=== PATIENT | female | born 1945 | race Caucasian/White ===

== ENCOUNTER 2017-10-30 03:55 | Inpatient (IN) | payer OTHER, MEDICARE ==
[2017-10-30 05:15] LABS: ABNORMAL IP MESSAGE 1; HEMATOCRIT 43.7 % (37.0-47.0); HEMOGLOBIN 13.3 g/dl (12.0-16.0); MEAN CORPUSCULAR HEMOGLOBIN 28.2 pg (29.0-33.0); MEAN CORPUSCULAR HGB CONC 30.4 g/dl (32.0-37.0); MEAN CORPUSCULAR VOLUME 92.8 fl (82.0-101.0); MEAN PLATELET VOLUME 11.7 fl (7.4-10.4); NUCLEATED RED BLOOD CELLS% 0.1 /100WBC (0.0-0.0); PLATELET COUNT 330 10^3/UL (140-415); RED BLOOD COUNT 4.71 10^6/ul (4.20-5.40); RED CELL DISTRIBUTION WIDTH 14.2 % (11.5-14.5)
[2017-10-30 05:46] LABS: POSITIVE DIFF @See below
[2017-10-30 05:47] LABS: ADD MAN DIFF? YES
[2017-10-30 05:50] LABS: ANION GAP 17 (8-16); BLOOD UREA NITROGEN 42 mg/dl (7-20); CALCIUM 9.2 mg/dl (8.4-10.2); CARBON DIOXIDE 32 mmol/L (21-31); CHLORIDE 100 mmol/L (97-110); CREATININE 1.67 mg/dl (0.44-1.00); GLUCOSE 167 mg/dl (70-220); POTASSIUM 3.9 mmol/L (3.5-5.1); SODIUM 145 mmol/L (135-144)
[2017-10-30] MEDS: SODIUM CHLORIDE 0.9% 1L BAG IV* (06:42)
[2017-10-30] MEDS ORDERED: ROCURONIUM 50 MG INJ (07:00)
[2017-10-30] MEDS ORDERED: ETOMIDATE 20 MG INJ (07:00)
[2017-10-30] MEDS ORDERED: NORepinephrine 8MG/250 ML BAG (07:00)
[2017-10-30 07:34] LABS: URINE PH (Dip) POC 5.5 (5.0-8.5)
[2017-10-30 07:34] LABS: URINE BLOOD (Dip) POC 1+ (NEGATIVE); URINE GLUCOSE (Dip) POC Negative (NEGATIVE); URINE KETONES (Dip) POC Negative (NEGATIVE); URINE LEUKOCYTE EST (Dip) POC Trace (NEGATIVE); URINE NITRITE (Dip) POC Negative (NEGATIVE); URINE TOTAL PROTEIN POC 1+ (NEGATIVE)
[2017-10-30 08:06] LABS: LACTIC ACID 1.7 mmol/L (0.5-2.0)
[2017-10-30] MEDS: CEFEPIME 2GM/50 ML (PMX) 50 ML IVPB (08:13)
[2017-10-30 08:32] LABS: ADD UMIC YES; UR AMORPHOUS CRYSTAL FEW /HPF (NONE SEEN); UR ASCORBIC ACID NEGATIVE (NEGATIVE); UR BACTERIA MODERATE /HPF (NONE SEEN); UR BILIRUBIN (Dip) 1+ mg/dL (NEGATIVE); UR BLOOD (Dip) 1+ mg/dL (NEGATIVE); UR CLARITY TURBID (CLEAR); UR COLOR AMBER (YELLOW); UR GLUCOSE (Dip) NEGATIVE (NEGATIVE); UR KETONES (Dip) NEGATIVE (NEGATIVE); UR LEUKOCYTE ESTERASE (Dip) TRACE Leu/ul (NEGATIVE); UR MUCUS FEW /HPF (NONE SEEN); UR NITRITE (Dip) NEGATIVE (NEGATIVE); UR RBC 6 /HPF (0-5); UR SPECIFIC GRAVITY (Dip) 1.016 (1.003-1.030); UR SQUAMOUS EPITHELIAL CELL MANY /HPF (FEW); UR TOTAL PROTEIN (Dip) 1+ mg/dl (NEGATIVE); UR UROBILINOGEN (Dip) 2+ mg/dL (NEGATIVE); UR WBC 6 /HPF (0-5)
[2017-10-30] MEDS: ONDANSETRON 4 MG INJ IV ×2 (08:57→09:39)
[2017-10-30] MEDS: morphine 4 MG/ML VIAL IV ×2 (08:57→09:41)
[2017-10-30 09:12] LABS: BAND NEUTROPHILS % (M) 26 % (0-4); BASOPHIL #M 0.3 10^3/ul (0.0-0.0); BASOPHILS % (M) 1 % (0-2); GIANT THROMBO% (M) 3 % (0-0); LYMPHOCYTES #M 1.5 10^3/ul (0.8-2.9); LYMPHOCYTES % (M) 5 % (15-51); MONOCYTE #M 1.5 10^3/ul (0.3-0.9); MONOCYTES % (M) 5 % (0-11); PLATELET ESTIMATE NORMAL; POIKILOCYTOSIS 2+ (0-0); POLYCHROMASIA 1+ (0-0); SEGMENTED NEUTROPHILS (M) % 63 % (39-77); SMUDGE%M 2 % (0-0)
[2017-10-30 09:28] LABS: ALANINE AMINOTRANSFERASE 30 IU/L (13-69); ALBUMIN 3.7 g/dl (3.3-4.9); ALKALINE PHOSPHATASE 174 IU/L (42-121); ANION GAP 16 (8-16); ASPARTATE AMINO TRANSFERASE 40 IU/L (15-46); BLOOD UREA NITROGEN 44 mg/dl (7-20); CALCIUM 9.2 mg/dl (8.4-10.2); CARBON DIOXIDE 32 mmol/L (21-31); CHLORIDE 101 mmol/L (97-110); CREATININE 2.13 mg/dl (0.44-1.00); GLUCOSE 151 mg/dl (70-220); POTASSIUM 4.2 mmol/L (3.5-5.1); SODIUM 145 mmol/L (135-144); TOTAL PROTEIN 7.4 g/dl (6.1-8.1)
[2017-10-30 09:29] LABS: LACTIC ACID 2.1 mmol/L (0.5-2.0)
[2017-10-30] MEDS: HYDROCODONE/APAP (5/325) TAB PO ×2 (09:30→09:33)
[2017-10-30 09:33] LABS: INR 1.11; PROTIME 14.5 Sec (11.9-14.9); PT RATIO 1.1
[2017-10-30 09:34] LABS: PARTIAL THROMBOPLASTIN TIME 33.5 Sec (25.0-35.0)
[2017-10-30 09:40] LABS: TROPONIN-I 0.048 ng/ml (0.00-0.12)
[2017-10-30] MEDS ORDERED: ACETAMINOPHEN 325 MG TAB PO (10:30)
[2017-10-30] MEDS ORDERED: ONDANSETRON 4 MG INJ IV (10:30)
[2017-10-30] MEDS: VANCOMYCIN 1 GM (PMX) 250 ML IVPB (10:50)
[2017-10-30 12:33] LABS: LACTIC ACID 1.6 mmol/L (0.5-2.0)
[2017-10-30 12:33] LABS: TROPONIN-I 0.042 ng/ml (0.00-0.12)
[2017-10-30 14:57] LABS: Allen Test ACCEPTAB; Arterial Base Excess -4.9 mmol/L (-3.0-3); Arterial Blood Gas Oxygen Sat 99.1 mmHG (95.0-100.0); Arterial COHb 0.1 % (0.0-3.0); Arterial Fraction of Oxyhgb 98.5 % (93.0-99.0); Arterial HCO3 24.7 mmol/L (22.0-26.0); Arterial MetHb 0.5 % (0.0-1.5); Arterial Total Hemglobin 13.1 g/dl (12.0-18.0); Arterial pCO2 67.9 mmhg (35-45); MODE VENT - AC; Site Right Radial
[2017-10-30] MEDS: SOD CHLORIDE 0.9% 1,000 ML IV ×2 (15:13→19:37)
[2017-10-30] MEDS ORDERED: PROPOFOL 100 ML (16:11)
[2017-10-30 16:57] LABS: CREATINE KINASE 1128 IU/L (23-200)
[2017-10-30] MEDS ORDERED: VANCOMYCIN IV PER PHARMACY XX (18:30)
[2017-10-30] MEDS ORDERED: FENTAnyl (DRIP) 1000 mcg/100mL 100 ML IV (19:00)
[2017-10-30] MEDS: VANCOMYCIN 1 GM 250 ML IVPB (19:29)
[2017-10-30] MEDS: PROPOFOL 100 ML IV ×2 (19:38→23:46)
[2017-10-30] MEDS: NORepinephrine 8MG/250 ML (PMX 250 ML IV ×2 (19:40→20:52)
[2017-10-30] MEDS: ENOXAPARIN 30 MG/0.3 ML SYG SC (19:43)
[2017-10-30] MEDS ORDERED: GLUCOSE GEL 15 GRAM TUBE BUCCAL (20:30)
[2017-10-30] MEDS ORDERED: GLUCOSE GEL 15 GRAM TUBE PO ×2 (20:30)
[2017-10-30] MEDS ORDERED: GLUCAGON 1 MG INJ IM (20:30)
[2017-10-30] MEDS ORDERED: DEXTROSE 50% 50 ML SYRINGE IV ×2 (20:30)
[2017-10-30 20:48] LABS: AADO2 Arterial 141.5 mmHg (7.0-24.0); Allen Test ACCEPTAB; Arterial Base Excess -7.5 mmol/L (-3.0-3); Arterial Blood Gas Oxygen Sat 96.9 mmHG (95.0-100.0); Arterial COHb 0.3 % (0.0-3.0); Arterial Fraction of Oxyhgb 96.2 % (93.0-99.0); Arterial HCO3 19.6 mmol/L (22.0-26.0); Arterial MetHb 0.4 % (0.0-1.5); Arterial Total Hemglobin 12.8 g/dl (12.0-18.0); Arterial pCO2 45.7 mmhg (35-45); MODE VENT - AC; Site Left Radial
[2017-10-30] MEDS: INSULIN ASPART [NOVOLOG] 3 ML PEN SC (21:00)
[2017-10-30] MEDS ORDERED: CEFEPIME 2GM/50 ML (PMX) 50 ML IVPB (21:00)
[2017-10-30 23:18] LABS: CREATINE KINASE 924 IU/L (23-200)
[2017-10-30] MEDS: ALBUMIN HUMAN 25% 100 ML IV (23:18)
[2017-10-30 23:31] LABS: TROPONIN-I 0.034 ng/ml (0.00-0.12)
[2017-10-31] MEDS: INSULIN ASPART [NOVOLOG] 3 ML PEN SC ×6 (00:59→20:27)
[2017-10-31] MEDS: ALBUMIN HUMAN 25% 100 ML IV (01:05)
[2017-10-31] MEDS: ACCU-CHEK XX (01:45)
[2017-10-31] MEDS: SOD CHLORIDE 0.9% 1,000 ML IV ×2 (04:30→09:40)
[2017-10-31 05:18] LABS: ABNORMAL IP MESSAGE 1; HEMATOCRIT 31.9 % (37.0-47.0); HEMOGLOBIN 9.7 g/dl (12.0-16.0); MEAN CORPUSCULAR HEMOGLOBIN 28.2 pg (29.0-33.0); MEAN CORPUSCULAR HGB CONC 30.4 g/dl (32.0-37.0); MEAN CORPUSCULAR VOLUME 92.7 fl (82.0-101.0); MEAN PLATELET VOLUME 10.8 fl (7.4-10.4); NUCLEATED RED BLOOD CELLS% 0.2 /100WBC (0.0-0.0); PLATELET COUNT 270 10^3/UL (140-415); RED BLOOD COUNT 3.44 10^6/ul (4.20-5.40); RED CELL DISTRIBUTION WIDTH 14.6 % (11.5-14.5)
[2017-10-31 05:18] LABS: WHITE BLOOD COUNT 14.1 10^3/ul (4.8-10.8)
[2017-10-31 05:45] LABS: POSITIVE DIFF @See below
[2017-10-31 05:47] LABS: ADD MAN DIFF? YES
[2017-10-31 05:51] LABS: ALANINE AMINOTRANSFERASE 37 IU/L (13-69); ALKALINE PHOSPHATASE 99 IU/L (42-121); ASPARTATE AMINO TRANSFERASE 37 IU/L (15-46); TOTAL PROTEIN 5.5 g/dl (6.1-8.1)
[2017-10-31 05:52] LABS: ANION GAP 20 (8-16); BLOOD UREA NITROGEN 58 mg/dl (7-20); CALCIUM 7.9 mg/dl (8.4-10.2); CARBON DIOXIDE 21 mmol/L (21-31); CHLORIDE 111 mmol/L (97-110); CREATININE 3.13 mg/dl (0.44-1.00); GLUCOSE 119 mg/dl (70-220); MAGNESIUM 1.9 mg/dl (1.7-2.5); PHOSPHORUS 2.3 mg/dl (2.5-4.9); POTASSIUM 3.9 mmol/L (3.5-5.1); SODIUM 148 mmol/L (135-144)
[2017-10-31] MEDS: PANTOPRAZOLE 40 MG INJ IV (05:54)
[2017-10-31 06:17] LABS: INR 1.36; PT RATIO 1.3
[2017-10-31 06:18] LABS: PARTIAL THROMBOPLASTIN TIME 33.2 Sec (25.0-35.0)
[2017-10-31] MEDS: PROPOFOL 100 ML IV ×2 (06:26→11:58)
[2017-10-31] MEDS: CEFEPIME 2GM/50 ML (PMX) 50 ML IVPB (07:44)
[2017-10-31] MEDS: LACTATED RINGER'S 500 ML IV (08:37)
[2017-10-31] MEDS: ENOXAPARIN 30 MG/0.3 ML SYG SC (08:52)
[2017-10-31 08:59] LABS: BAND NEUTROPHILS #M 3.3 10^3/ul (0.0-0.6); BAND NEUTROPHILS % (M) 24 % (0-4); BURR CELLS 1+ (0-0); ERYTHROBLAST% (NRBC) (M) 1 % (0-0); GIANT THROMBO% (M) 3 % (0-0); LYMPHOCYTES #M 1.8 10^3/ul (0.8-2.9); LYMPHOCYTES % (M) 13 % (15-51); MONOCYTE #M 1.2 10^3/ul (0.3-0.9); MONOCYTES % (M) 9 % (0-11); PLATELET ESTIMATE NORMAL; POIKILOCYTOSIS 1+ (0-0); POLYCHROMASIA 1+ (0-0); PROMYELOCYTES #M 0.2 10^3/ul (0-0); PROMYELOCYTES % (M) 2 % (0-0); REACTIVE LYMPHOCYTES #M 0.2 10^3/ul (0.0-0.0); REACTIVE LYMPHOCYTES% (M) 2 % (0-0); SEG NEUT #M 7.5 10^3/ul (1.7-7.5); SEGMENTED NEUTROPHILS (M) % 50 % (39-77); SMUDGE%M 12 % (0-0)
[2017-10-31 09:22] LABS: AADO2 Arterial 83.3 mmHg (7.0-24.0); Allen Test ACCEPTAB; Arterial Base Excess -6.5 mmol/L (-3.0-3); Arterial COHb 0.2 % (0.0-3.0); Arterial Fraction of Oxyhgb 98.3 % (93.0-99.0); Arterial HCO3 17.3 mmol/L (22.0-26.0); Arterial MetHb 0.5 % (0.0-1.5); Arterial Total Hemglobin 7.3 g/dl (12.0-18.0); Arterial pCO2 27.3 mmhg (35-45); MODE VENT - AC; Site Right Radial
[2017-10-31 11:44] LABS: FREE T4 (FREE THYROXINE) 1.43 ng/dl (0.78-2.44)
[2017-10-31 11:59] LABS: THYROID STIMULATING HORMONE 0.296 MIU/L (0.465-4.680)
[2017-10-31 12:30] LABS: ANION GAP 17 (8-16); BLOOD UREA NITROGEN 63 mg/dl (7-20); CALCIUM 8.1 mg/dl (8.4-10.2); CARBON DIOXIDE 21 mmol/L (21-31); CHLORIDE 112 mmol/L (97-110); CREATININE 3.51 mg/dl (0.44-1.00); GLUCOSE 117 mg/dl (70-220); SODIUM 146 mmol/L (135-144)
[2017-10-31] MEDS: SOD CHLORIDE 0.45% 1,000 ML IV (18:00)
[2017-10-31] MEDS: FUROSEMIDE 40 MG INJ IV (18:20)
[2017-10-31 19:18] LABS: CREATINE KINASE 1343 IU/L (23-200)
[2017-10-31] MEDS: HEPARIN 5,000 UNIT/0.5 ML VIAL SC (20:32)
[2017-11-01] MEDS: INSULIN ASPART [NOVOLOG] 3 ML PEN SC ×5 (01:00→18:00)
[2017-11-01] MEDS: ACCU-CHEK XX (01:31)
[2017-11-01] MEDS: PROPOFOL 100 ML IV (01:33)
[2017-11-01] MEDS ORDERED: VANCOMYCIN 1.25 GM in SOD CHLORIDE 0.45% 250 ML IVPB (02:00)
[2017-11-01] MEDS: SOD CHLORIDE 0.45% 1,000 ML IV (03:19)
[2017-11-01 05:47] LABS: ABNORMAL IP MESSAGE 1; HEMATOCRIT 31.8 % (37.0-47.0); HEMOGLOBIN 9.6 g/dl (12.0-16.0); MEAN CORPUSCULAR HEMOGLOBIN 27.7 pg (29.0-33.0); MEAN CORPUSCULAR HGB CONC 30.2 g/dl (32.0-37.0); MEAN CORPUSCULAR VOLUME 91.9 fl (82.0-101.0); MEAN PLATELET VOLUME 10.8 fl (7.4-10.4); NUCLEATED RED BLOOD CELLS% 0.2 /100WBC (0.0-0.0); PLATELET COUNT 277 10^3/UL (140-415); RED BLOOD COUNT 3.46 10^6/ul (4.20-5.40); RED CELL DISTRIBUTION WIDTH 15.4 % (11.5-14.5)
[2017-11-01 05:48] LABS: ADD MAN DIFF? YES; POSITIVE DIFF @See below
[2017-11-01] MEDS: PANTOPRAZOLE 40 MG INJ IV (06:03)
[2017-11-01 06:18] LABS: ALANINE AMINOTRANSFERASE 32 IU/L (13-69); ALBUMIN/GLOBULIN RATIO 0.93; ALKALINE PHOSPHATASE 137 IU/L (42-121); ANION GAP 18 (8-16); ASPARTATE AMINO TRANSFERASE 57 IU/L (15-46); BLOOD UREA NITROGEN 75 mg/dl (7-20); CALCIUM 8.4 mg/dl (8.4-10.2); CARBON DIOXIDE 21 mmol/L (21-31); CHLORIDE 112 mmol/L (97-110); CREATININE 4.49 mg/dl (0.44-1.00); GLUCOSE 84 mg/dl (70-220); SODIUM 147 mmol/L (135-144); TOTAL PROTEIN 6.2 g/dl (6.1-8.1)
[2017-11-01 07:31] LABS: SODIUM,URINE RANDOM 99 mmol/L (30-90)
[2017-11-01 07:38] LABS: LACTIC ACID 1.1 mmol/L (0.5-2.0)
[2017-11-01 07:42] LABS: MAGNESIUM 2.1 mg/dl (1.7-2.5)
[2017-11-01 07:42] LABS: PHOSPHORUS 3.7 mg/dl (2.5-4.9)
[2017-11-01] MEDS: CEFEPIME 2GM/50 ML (PMX) 50 ML IVPB (07:46)
[2017-11-01 08:09] LABS: BAND NEUTROPHILS #M 1.6 10^3/ul (0.0-0.6); BAND NEUTROPHILS % (M) 7 % (0-4); BURR CELLS 1+ (0-0); EOSINOPHILS % (M) 1 % (0-7); LYMPHOCYTES #M 4.6 10^3/ul (0.8-2.9); LYMPHOCYTES % (M) 20 % (15-51); METAMYELOCYTES #M 0.2 10^3/ul (0.0-0.0); METAMYELOCYTES %M 1 % (0-0); MONOCYTE #M 0.6 10^3/ul (0.3-0.9); MONOCYTES % (M) 3 % (0-11); MYELOCYTES #M 1.1 10^3/ul (0.0-0.0); MYELOCYTES % (M) 5 % (0-0); PLATELET ESTIMATE NORMAL; POIKILOCYTOSIS 1+ (0-0); POLYCHROMASIA 1+ (0-0); PROMYELOCYTES #M 0.2 10^3/ul (0-0); PROMYELOCYTES % (M) 1 % (0-0); REACTIVE LYMPHOCYTES #M 0.2 10^3/ul (0.0-0.0); REACTIVE LYMPHOCYTES% (M) 1 % (0-0); SEG NEUT #M 14.4 10^3/ul (1.7-7.5); SEGMENTED NEUTROPHILS (M) % 61 % (39-77); SMUDGE%M 4 % (0-0)
[2017-11-01] MEDS: HEPARIN 5,000 UNIT/0.5 ML VIAL SC ×2 (08:53→21:01)
[2017-11-01] MEDS: VANCOMYCIN 1 GM 250 ML IVPB (10:34)
[2017-11-01] MEDS: FUROSEMIDE 40 MG INJ IV (13:53)
[2017-11-01] MEDS ORDERED: CHLOROTHIAZIDE 500 MG INJ IV (14:00)
[2017-11-01] MEDS: DEXTROSE 5% IVPB (15:52)
[2017-11-01] MEDS: CHLOROTHIAZIDE IVPB (15:52)
[2017-11-01] MEDS: BUMETANIDE 2 MG in DEXTROSE 5% 17 ML IVPB (20:48)
[2017-11-01] MEDS: BUMETANIDE 25 MG in DEXTROSE 5% 150 ML IV (21:03)
[2017-11-02] MEDS: ACCU-CHEK XX (01:09)
[2017-11-02 05:17] LABS: AADO2 Arterial 113.8 mmHg (7.0-24.0); Allen Test ACCEPTAB; Arterial Base Excess -10.1 mmol/L (-3.0-3); Arterial COHb 0.3 % (0.0-3.0); Arterial Fraction of Oxyhgb 97.5 % (93.0-99.0); Arterial HCO3 16.8 mmol/L (22.0-26.0); Arterial MetHb 0.2 % (0.0-1.5); Arterial Total Hemglobin 11.7 g/dl (12.0-18.0); Arterial pCO2 40.8 mmhg (35-45); MODE VENT - AC; Site Right Radial
[2017-11-02] MEDS: INSULIN ASPART [NOVOLOG] 3 ML PEN SC ×4 (06:00→18:00)
[2017-11-02 06:11] LABS: WHITE BLOOD COUNT 30.9 10^3/ul (4.8-10.8)
[2017-11-02 06:11] LABS: ABNORMAL IP MESSAGE 1; HEMATOCRIT 33.4 % (37.0-47.0); HEMOGLOBIN 10.2 g/dl (12.0-16.0); MEAN CORPUSCULAR HGB CONC 30.5 g/dl (32.0-37.0); MEAN CORPUSCULAR VOLUME 91.8 fl (82.0-101.0); MEAN PLATELET VOLUME 11.2 fl (7.4-10.4); NUCLEATED RED BLOOD CELLS% 0.1 /100WBC (0.0-0.0); PLATELET COUNT 321 10^3/UL (140-415); RED BLOOD COUNT 3.64 10^6/ul (4.20-5.40); RED CELL DISTRIBUTION WIDTH 15.9 % (11.5-14.5)
[2017-11-02] MEDS: PANTOPRAZOLE 40 MG INJ IV (06:18)
[2017-11-02 06:19] LABS: ADD MAN DIFF? YES; POSITIVE DIFF @See below
[2017-11-02 06:32] LABS: ANION GAP 20 (8-16); BLOOD UREA NITROGEN 96 mg/dl (7-20); CALCIUM 8.7 mg/dl (8.4-10.2); CARBON DIOXIDE 18 mmol/L (21-31); CHLORIDE 112 mmol/L (97-110); CREATININE 5.64 mg/dl (0.44-1.00); GLUCOSE 88 mg/dl (70-220); POTASSIUM 4.2 mmol/L (3.5-5.1); SODIUM 146 mmol/L (135-144)
[2017-11-02 07:52] LABS: BAND NEUTROPHILS #M 2.1 10^3/ul (0.0-0.6); BAND NEUTROPHILS % (M) 7 % (0-4); GIANT THROMBO% (M) 2 % (0-0); LYMPHOCYTES % (M) 13 % (15-51); METAMYELOCYTES #M 0.6 10^3/ul (0.0-0.0); METAMYELOCYTES %M 2 % (0-0); MONOCYTE #M 1.2 10^3/ul (0.3-0.9); MONOCYTES % (M) 4 % (0-11); MYELOCYTES #M 0.3 10^3/ul (0.0-0.0); MYELOCYTES % (M) 1 % (0-0); PLATELET ESTIMATE NORMAL; SEG NEUT #M 23.2 10^3/ul (1.7-7.5); SEGMENTED NEUTROPHILS (M) % 73 % (39-77)
[2017-11-02] MEDS: CEFEPIME 2GM/50 ML (PMX) 50 ML IVPB (08:14)
[2017-11-02] MEDS: HEPARIN 5,000 UNIT/0.5 ML VIAL SC ×2 (08:59→20:33)
[2017-11-02] MEDS: SODIUM BICARBONATE (IV ADD) 100 MEQ in DEXTROSE 5% 900 ML IV (10:34)
[2017-11-02] MEDS ORDERED: MANNITOL 25% 50 ML IV (11:00)
[2017-11-02] MEDS ORDERED: SODIUM CHLORIDE 0.9% 1L BAG IV (11:00)
[2017-11-02] MEDS: LORAZEPAM 2 MG INJ IV (11:07)
[2017-11-02 13:23] LABS: HEPATITIS B SURFACE ANTIGEN NEGATIVE (NEGATIVE)
[2017-11-02 13:49] LABS: HEPATITIS B SURFACE ANTIBODY NEGATIVE (NEGATIVE)
[2017-11-02] MEDS: BUMETANIDE 25 MG in DEXTROSE 5% 150 ML IV (20:33)
[2017-11-02] MEDS: ALTEPLASE (CATHFLO) 2 MG INJ CATHETER (23:22)
[2017-11-03] MEDS: SODIUM BICARBONATE (IV ADD) 100 MEQ in DEXTROSE 5% 900 ML IV (00:48)
[2017-11-03] MEDS: ACCU-CHEK XX (01:49)
[2017-11-03] MEDS: HEPARIN 1000 UNITS/ML 10 ML INJ HE (01:54)
[2017-11-03 05:16] LABS: ADD MAN DIFF? NO
[2017-11-03 05:21] LABS: ABNORMAL IP MESSAGE 1; BASOPHIL # 0.1 10^3/ul (0.0-0.1); BASOPHILS % 0.2 % (0.0-2.0); EOSINOPHILS # 0.2 10^3/ul (0.0-0.5); EOSINOPHILS % 0.7 % (0.0-7.0); HEMATOCRIT 31.5 % (37.0-47.0); HEMOGLOBIN 10.2 g/dl (12.0-16.0); LYMPHOCYTES # 2.6 10^3/ul (0.8-2.9); LYMPHOCYTES % 8.6 % (15.0-51.0); MEAN CORPUSCULAR HGB CONC 32.4 g/dl (32.0-37.0); MEAN CORPUSCULAR VOLUME 86.5 fl (82.0-101.0); MEAN PLATELET VOLUME 10.9 fl (7.4-10.4); MONOCYTE # 2.1 10^3/ul (0.3-0.9); MONOCYTES % 7.1 % (0.0-11.0); NEUTROPHIL # 19.4 10^3/ul (1.6-7.5); NEUTROPHILS % 65.4 % (39.0-77.0); NUCLEATED RED BLOOD CELLS # 0.1 10^3/ul (0.0-0.0); NUCLEATED RED BLOOD CELLS% 0.2 /100WBC (0.0-0.0); PLATELET COUNT 293 10^3/UL (140-415); RED BLOOD COUNT 3.64 10^6/ul (4.20-5.40); RED CELL DISTRIBUTION WIDTH 15.4 % (11.5-14.5)
[2017-11-03 05:21] LABS: WHITE BLOOD COUNT 29.6 10^3/ul (4.8-10.8)
[2017-11-03 05:29] LABS: POSITIVE DIFF @See below
[2017-11-03] MEDS: PANTOPRAZOLE 40 MG INJ IV (05:41)
[2017-11-03] MEDS: INSULIN ASPART [NOVOLOG] 3 ML PEN SC ×4 (05:43→17:53)
[2017-11-03 06:10] LABS: ANION GAP 16 (8-16); BLOOD UREA NITROGEN 66 mg/dl (7-20); CALCIUM 8.6 mg/dl (8.4-10.2); CARBON DIOXIDE 32 mmol/L (21-31); CHLORIDE 100 mmol/L (97-110); CREATININE 3.87 mg/dl (0.44-1.00); GLUCOSE 162 mg/dl (70-220); MAGNESIUM 1.9 mg/dl (1.7-2.5); PHOSPHORUS 3.9 mg/dl (2.5-4.9); POTASSIUM 3.3 mmol/L (3.5-5.1); SODIUM 145 mmol/L (135-144)
[2017-11-03] MEDS: CEFEPIME 2GM/50 ML (PMX) 50 ML IVPB (08:22)
[2017-11-03] MEDS: HEPARIN 5,000 UNIT/0.5 ML VIAL SC ×2 (08:32→21:00)
[2017-11-03 09:16] LABS: BAND NEUTROPHILS #M 3.2 10^3/ul (0.0-0.6); BAND NEUTROPHILS % (M) 11 % (0-4); EOSINOPHILS % (M) 1 % (0-7); LYMPHOCYTES #M 4.7 10^3/ul (0.8-2.9); LYMPHOCYTES % (M) 16 % (15-51); METAMYELOCYTES #M 0.5 10^3/ul (0.0-0.0); METAMYELOCYTES %M 2 % (0-0); MONOCYTE #M 1.7 10^3/ul (0.3-0.9); MONOCYTES % (M) 6 % (0-11); MYELOCYTES #M 1.4 10^3/ul (0.0-0.0); MYELOCYTES % (M) 5 % (0-0); PLATELET ESTIMATE NORMAL; POLYCHROMASIA 3+ (0-0); REACTIVE LYMPHOCYTES #M 0.2 10^3/ul (0.0-0.0); REACTIVE LYMPHOCYTES% (M) 1 % (0-0); SEG NEUT #M 18.1 10^3/ul (1.7-7.5); SEGMENTED NEUTROPHILS (M) % 58 % (39-77); SMUDGE%M 4 % (0-0)
[2017-11-03] MEDS: morphine 2 MG INJ IV ×2 (10:13→15:39)
[2017-11-03] MEDS ORDERED: SODIUM CHLORIDE 0.9% 1L BAG IV (11:30)
[2017-11-03 13:04] LABS: ANION GAP 13 (8-16); BLOOD UREA NITROGEN 74 mg/dl (7-20); CALCIUM 8.5 mg/dl (8.4-10.2); CARBON DIOXIDE 35 mmol/L (21-31); CHLORIDE 99 mmol/L (97-110); CREATININE 3.82 mg/dl (0.44-1.00); GLUCOSE 165 mg/dl (70-220); POTASSIUM 3.3 mmol/L (3.5-5.1); SODIUM 144 mmol/L (135-144)
[2017-11-04] MEDS: morphine 2 MG INJ IV ×2 (01:07→08:29)
[2017-11-04] MEDS: ACCU-CHEK XX (02:00)
[2017-11-04 05:17] LABS: ABNORMAL IP MESSAGE 1; HEMATOCRIT 33.4 % (37.0-47.0); HEMOGLOBIN 10.2 g/dl (12.0-16.0); MEAN CORPUSCULAR HEMOGLOBIN 27.7 pg (29.0-33.0); MEAN CORPUSCULAR HGB CONC 30.5 g/dl (32.0-37.0); MEAN CORPUSCULAR VOLUME 90.8 fl (82.0-101.0); MEAN PLATELET VOLUME 10.8 fl (7.4-10.4); NUCLEATED RED BLOOD CELLS% 0.1 /100WBC (0.0-0.0); PLATELET COUNT 239 10^3/UL (140-415); RED BLOOD COUNT 3.68 10^6/ul (4.20-5.40); RED CELL DISTRIBUTION WIDTH 15.4 % (11.5-14.5)
[2017-11-04 05:38] LABS: ADD MAN DIFF? YES; POSITIVE DIFF @See below
[2017-11-04] MEDS: PANTOPRAZOLE 40 MG INJ IV (05:39)
[2017-11-04] MEDS: BUMETANIDE 1 MG INJ IV (05:39)
[2017-11-04 05:53] LABS: ANION GAP 13 (8-16); BLOOD UREA NITROGEN 45 mg/dl (7-20); CARBON DIOXIDE 32 mmol/L (21-31); CHLORIDE 104 mmol/L (97-110); CREATININE 2.92 mg/dl (0.44-1.00); GLUCOSE 129 mg/dl (70-220); PHOSPHORUS 4.4 mg/dl (2.5-4.9); POTASSIUM 4.1 mmol/L (3.5-5.1); SODIUM 145 mmol/L (135-144)
[2017-11-04 05:55] LABS: VANCOMYCIN,RANDOM 13.6 ug/ml
[2017-11-04] MEDS: INSULIN ASPART [NOVOLOG] 3 ML PEN SC ×4 (07:00→18:10)
[2017-11-04 08:27] LABS: AADO2 Arterial 96.7 mmHg (7.0-24.0); Arterial Base Excess 2.5 mmol/L (-3.0-3); Arterial Blood Gas Oxygen Sat 94.4 mmHG (95.0-100.0); Arterial COHb 0.5 % (0.0-3.0); Arterial Fraction of Oxyhgb 93.7 % (93.0-99.0); Arterial HCO3 30.5 mmol/L (22.0-26.0); Arterial MetHb 0.2 % (0.0-1.5); Arterial Total Hemglobin 11.8 g/dl (12.0-18.0); Arterial pCO2 64.4 mmhg (35-45); Blood Gas PS 16; MODE VENT - SIMV; Site Right Brachial
[2017-11-04] MEDS: CEFEPIME 2GM/50 ML (PMX) 50 ML IVPB (08:29)
[2017-11-04] MEDS: HEPARIN 5,000 UNIT/0.5 ML VIAL SC ×2 (08:30→21:15)
[2017-11-04 09:55] LABS: BAND NEUTROPHILS #M 5.1 10^3/ul (0.0-0.6); BAND NEUTROPHILS % (M) 15 % (0-4); GIANT THROMBO% (M) 7 % (0-0); LYMPHOCYTES #M 1.7 10^3/ul (0.8-2.9); LYMPHOCYTES % (M) 5 % (15-51); METAMYELOCYTES #M 1.7 10^3/ul (0.0-0.0); METAMYELOCYTES %M 5 % (0-0); MONOCYTE #M 1.7 10^3/ul (0.3-0.9); MONOCYTES % (M) 5 % (0-11); MYELOCYTES #M 2.3 10^3/ul (0.0-0.0); MYELOCYTES % (M) 7 % (0-0); OVALOCYTES 1+ (0-0); PLATELET ESTIMATE NORMAL; POLYCHROMASIA 1+ (0-0); PROMYELOCYTES #M 0.6 10^3/ul (0-0); PROMYELOCYTES % (M) 2 % (0-0); SEG NEUT #M 22.5 10^3/ul (1.6-7.5); SEGMENTED NEUTROPHILS (M) % 61 % (39-77); SMUDGE%M 4 % (0-0)
[2017-11-04] MEDS ORDERED: BUMETANIDE 1 MG INJ IV ×3 (10:00→18:00)
[2017-11-04] MEDS: BUMETANIDE 2 MG in DEXTROSE 5% 17 ML IV ×2 (11:00→18:00)
[2017-11-04] MEDS: BUMETANIDE 25 MG in DEXTROSE 5% 150 ML IV ×2 (12:00→18:50)
[2017-11-04] MEDS ORDERED: LORAZEPAM 2 MG INJ (13:12)
[2017-11-04] MEDS ORDERED: LORAZEPAM 2 MG INJ IV (13:30)
[2017-11-04] MEDS: METHYLPREDNISOLONE 40 MG INJ IV ×2 (13:42→22:18)
[2017-11-04] MEDS: LORAZEPAM 2 MG INJ IV (13:42)
[2017-11-04] MEDS: VANCOMYCIN 1 GM 250 ML IVPB (16:25)
[2017-11-05] MEDS: INSULIN ASPART [NOVOLOG] 3 ML PEN SC ×5 (00:22→23:45)
[2017-11-05] MEDS: ACCU-CHEK XX (02:00)
[2017-11-05 04:43] LABS: ABNORMAL IP MESSAGE 1; HEMATOCRIT 35.6 % (37.0-47.0); HEMOGLOBIN 10.8 g/dl (12.0-16.0); MEAN CORPUSCULAR HEMOGLOBIN 27.7 pg (29.0-33.0); MEAN CORPUSCULAR HGB CONC 30.3 g/dl (32.0-37.0); MEAN CORPUSCULAR VOLUME 91.3 fl (82.0-101.0); MEAN PLATELET VOLUME 11.2 fl (7.4-10.4); NUCLEATED RED BLOOD CELLS% 0.1 /100WBC (0.0-0.0); PLATELET COUNT 283 10^3/UL (140-415); RED CELL DISTRIBUTION WIDTH 15.5 % (11.5-14.5)
[2017-11-05 04:43] LABS: WHITE BLOOD COUNT 30.9 10^3/ul (4.8-10.8)
[2017-11-05 05:03] LABS: ANION GAP 18 (8-16)
[2017-11-05 05:07] LABS: BLOOD UREA NITROGEN 82 mg/dl (7-20); CALCIUM 9.5 mg/dl (8.4-10.2); CARBON DIOXIDE 29 mmol/L (21-31); CHLORIDE 105 mmol/L (97-110); CREATININE 4.53 mg/dl (0.44-1.00); GLUCOSE 196 mg/dl (70-220); MAGNESIUM 2.4 mg/dl (1.7-2.5); PHOSPHORUS 5.8 mg/dl (2.5-4.9); POTASSIUM 4.8 mmol/L (3.5-5.1); SODIUM 147 mmol/L (135-144)
[2017-11-05 05:09] LABS: POSITIVE DIFF @See below
[2017-11-05] MEDS: METHYLPREDNISOLONE 40 MG INJ IV ×3 (05:10→21:54)
[2017-11-05] MEDS: BUMETANIDE 2 MG in DEXTROSE 5% 17 ML IV ×2 (05:10→20:28)
[2017-11-05] MEDS: PANTOPRAZOLE 40 MG INJ IV (05:10)
[2017-11-05 05:11] LABS: ADD MAN DIFF? YES
[2017-11-05] MEDS ORDERED: ALBUMIN HUMAN 25% 50 ML IV (07:30)
[2017-11-05] MEDS ORDERED: HEPARIN 1000 UNITS/ML 10 ML INJ CATHETER (07:30)
[2017-11-05 07:54] LABS: BAND NEUTROPHILS #M 1.5 10^3/ul (0.0-0.6); BAND NEUTROPHILS % (M) 5 % (0-4); EOSINOPHILS % (M) 1 % (0-7); LYMPHOCYTES #M 0.9 10^3/ul (0.8-2.9); LYMPHOCYTES % (M) 3 % (15-51); METAMYELOCYTES #M 1.2 10^3/ul (0.0-0.0); METAMYELOCYTES %M 4 % (0-0); MONOCYTE #M 0.9 10^3/ul (0.3-0.9); MONOCYTES % (M) 3 % (0-11); MYELOCYTES #M 2.1 10^3/ul (0.0-0.0); MYELOCYTES % (M) 7 % (0-0); PLATELET ESTIMATE NORMAL; SEG NEUT #M 24.3 10^3/ul (1.6-7.5); SEGMENTED NEUTROPHILS (M) % 77 % (39-77); SMUDGE%M 5 % (0-0)
[2017-11-05 08:47] LABS: AADO2 Arterial 76.3 mmHg (7.0-24.0); Allen Test ACCEPTAB; Arterial Base Excess -0.4 mmol/L (-3.0-3); Arterial Blood Gas Oxygen Sat 93.5 mmHG (95.0-100.0); Arterial COHb 0.4 % (0.0-3.0); Arterial HCO3 26.7 mmol/L (22.0-26.0); Arterial MetHb 0.1 % (0.0-1.5); Blood Gas PS 16; MODE VENT - SIMV; Site Left Radial
[2017-11-05] MEDS: CEFEPIME 1GM/50 ML IVPB (09:08)
[2017-11-05] MEDS: HEPARIN 5,000 UNIT/0.5 ML VIAL SC ×2 (09:09→20:29)
[2017-11-05] MEDS: CALCIUM ACETATE 667 MG CAP NGT (17:49)
[2017-11-05] MEDS: HEPARIN 1000 UNITS/ML 10 ML INJ CATHETER (19:18)
[2017-11-06] MEDS: ACCU-CHEK XX (02:20)
[2017-11-06] MEDS: METHYLPREDNISOLONE 40 MG INJ IV ×3 (05:29→21:02)
[2017-11-06] MEDS: PANTOPRAZOLE 40 MG INJ IV (05:29)
[2017-11-06] MEDS: INSULIN ASPART [NOVOLOG] 3 ML PEN SC ×3 (05:29→18:03)
[2017-11-06 05:41] LABS: ABNORMAL IP MESSAGE 1; HEMATOCRIT 35.9 % (37.0-47.0); MEAN CORPUSCULAR HEMOGLOBIN 27.6 pg (29.0-33.0); MEAN CORPUSCULAR HGB CONC 30.6 g/dl (32.0-37.0); MEAN PLATELET VOLUME 11.2 fl (7.4-10.4); NUCLEATED RED BLOOD CELLS% 0.1 /100WBC (0.0-0.0); PLATELET COUNT 364 10^3/UL (140-415); RED BLOOD COUNT 3.99 10^6/ul (4.20-5.40)
[2017-11-06 05:41] LABS: WHITE BLOOD COUNT 36.3 10^3/ul (4.8-10.8)
[2017-11-06 06:04] LABS: ADD MAN DIFF? YES; POSITIVE DIFF @See below
[2017-11-06 06:09] LABS: ANION GAP 18 (8-16); BLOOD UREA NITROGEN 67 mg/dl (7-20); CALCIUM 9.2 mg/dl (8.4-10.2); CARBON DIOXIDE 30 mmol/L (21-31); CHLORIDE 100 mmol/L (97-110); CREATININE 3.68 mg/dl (0.44-1.00); GLUCOSE 151 mg/dl (70-220); POTASSIUM 4.7 mmol/L (3.5-5.1); SODIUM 143 mmol/L (135-144)
[2017-11-06 07:37] LABS: BAND NEUTROPHILS % (M) 3 % (0-4); GIANT THROMBO% (M) 1 % (0-0); LYMPHOCYTES #M 2.5 10^3/ul (0.8-2.9); LYMPHOCYTES % (M) 7 % (15-51); MONOCYTE #M 2.9 10^3/ul (0.3-0.9); MONOCYTES % (M) 8 % (0-11); MYELOCYTES #M 0.7 10^3/ul (0.0-0.0); MYELOCYTES % (M) 2 % (0-0); PLATELET ESTIMATE NORMAL; POLYCHROMASIA 1+ (0-0); REACTIVE LYMPHOCYTES #M 0.7 10^3/ul (0.0-0.0); REACTIVE LYMPHOCYTES% (M) 2 % (0-0); SEG NEUT #M 28.7 10^3/ul (1.6-7.5); SEGMENTED NEUTROPHILS (M) % 78 % (39-77)
[2017-11-06] MEDS: CALCIUM ACETATE 667 MG CAP NGT ×3 (07:44→16:37)
[2017-11-06 08:23] LABS: AADO2 Arterial 67.7 mmHg (7.0-24.0); Allen Test ACCEPTAB; Arterial Base Excess -0.2 mmol/L (-3.0-3); Arterial Blood Gas Oxygen Sat 95.7 mmHG (95.0-100.0); Arterial COHb 0.3 % (0.0-3.0); Arterial Fraction of Oxyhgb 95.3 % (93.0-99.0); Arterial HCO3 26.4 mmol/L (22.0-26.0); Arterial MetHb 0.1 % (0.0-1.5); Arterial Total Hemglobin 11.9 g/dl (12.0-18.0); Arterial pCO2 51.9 mmhg (35-45); Blood Gas PS 12; MODE VENT - SIMV; Site Left Radial
[2017-11-06] MEDS: BUMETANIDE 2 MG in DEXTROSE 5% 17 ML IV ×3 (08:50→21:02)
[2017-11-06] MEDS: HEPARIN 5,000 UNIT/0.5 ML VIAL SC ×2 (08:51→21:04)
[2017-11-06 11:22] LABS: AADO2 Arterial 69.6 mmHg (7.0-24.0); Allen Test ACCEPTAB; Arterial Base Excess -0.2 mmol/L (-3.0-3); Arterial Blood Gas Oxygen Sat 94.9 mmHG (95.0-100.0); Arterial COHb 0.3 % (0.0-3.0); Arterial Fraction of Oxyhgb 94.3 % (93.0-99.0); Arterial HCO3 26.7 mmol/L (22.0-26.0); Arterial MetHb 0.3 % (0.0-1.5); Arterial Total Hemglobin 12.6 g/dl (12.0-18.0); Arterial pCO2 53.2 mmhg (35-45); Blood Gas PS 10; MODE VENT - CPAP; Site Left Radial
[2017-11-06] MEDS ORDERED: CHLOROTHIAZIDE 500 MG INJ IV (15:00)
[2017-11-06] MEDS ORDERED: SODIUM CHLORIDE 0.9% 1L BAG IV (15:00)
[2017-11-06] MEDS ORDERED: MANNITOL 25% 50 ML IV (15:00)
[2017-11-06] MEDS: DEXTROSE 5% IVPB (16:36)
[2017-11-06] MEDS: CHLOROTHIAZIDE IVPB (16:36)
[2017-11-07] MEDS: ACCU-CHEK XX (02:00)
[2017-11-07] MEDS: METHYLPREDNISOLONE 40 MG INJ IV ×3 (05:56→20:50)
[2017-11-07] MEDS: PANTOPRAZOLE 40 MG INJ IV (05:56)
[2017-11-07 06:00] LABS: WHITE BLOOD COUNT 24.8 10^3/ul (4.8-10.8)
[2017-11-07 06:00] LABS: ABNORMAL IP MESSAGE 1; HAAIG REFLEX REFLEX FILED; HEMATOCRIT 34.3 % (37.0-47.0); HEMOGLOBIN 10.6 g/dl (12.0-16.0); MEAN CORPUSCULAR HEMOGLOBIN 27.8 pg (29.0-33.0); MEAN CORPUSCULAR HGB CONC 30.9 g/dl (32.0-37.0); MEAN PLATELET VOLUME 11.4 fl (7.4-10.4); NUCLEATED RED BLOOD CELLS% 0.1 /100WBC (0.0-0.0); PLATELET COUNT 373 10^3/UL (140-415); RED BLOOD COUNT 3.81 10^6/ul (4.20-5.40); RED CELL DISTRIBUTION WIDTH 15.1 % (11.5-14.5)
[2017-11-07] MEDS: INSULIN ASPART [NOVOLOG] 3 ML PEN SC ×4 (06:07→17:21)
[2017-11-07 06:16] LABS: ANION GAP 21 (8-16); BLOOD UREA NITROGEN 115 mg/dl (7-20); CALCIUM 8.3 mg/dl (8.4-10.2); CARBON DIOXIDE 26 mmol/L (21-31); CHLORIDE 101 mmol/L (97-110); GLUCOSE 214 mg/dl (70-220); POTASSIUM 4.9 mmol/L (3.5-5.1); SODIUM 143 mmol/L (135-144)
[2017-11-07 06:41] LABS: HEPATITIS B SURFACE ANTIGEN NEGATIVE (NEGATIVE)
[2017-11-07 06:50] LABS: ADD MAN DIFF? YES; POSITIVE DIFF @See below
[2017-11-07 06:59] LABS: HEPATITIS B CORE ANTIBODY NEGATIVE (NEGATIVE); HEPATITIS C VIRAL ANTIBODY NEGATIVE (NEGATIVE)
[2017-11-07] MEDS: CALCIUM ACETATE 667 MG CAP NGT ×3 (07:36→17:19)
[2017-11-07 08:06] LABS: BAND NEUTROPHILS #M 0.9 10^3/ul (0.0-0.6); BAND NEUTROPHILS % (M) 4 % (0-4); LYMPHOCYTES #M 1.9 10^3/ul (0.8-2.9); LYMPHOCYTES % (M) 8 % (15-51); METAMYELOCYTES #M 0.4 10^3/ul (0.0-0.0); METAMYELOCYTES %M 2 % (0-0); MONOCYTE #M 1.9 10^3/ul (0.3-0.9); MONOCYTES % (M) 8 % (0-11); PLATELET ESTIMATE NORMAL; POLYCHROMASIA 1+ (0-0); REACTIVE LYMPHOCYTES #M 0.7 10^3/ul (0.0-0.0); REACTIVE LYMPHOCYTES% (M) 3 % (0-0); SEG NEUT #M 18.8 10^3/ul (1.6-7.5); SEGMENTED NEUTROPHILS (M) % 75 % (39-77); SMUDGE%M 11 % (0-0)
[2017-11-07] MEDS: BUMETANIDE 2 MG in DEXTROSE 5% 17 ML IV ×3 (09:01→20:50)
[2017-11-07] MEDS: HEPARIN 5,000 UNIT/0.5 ML VIAL SC ×2 (09:02→21:24)
[2017-11-07 10:39] LABS: AADO2 Arterial 59.5 mmHg (7.0-24.0); Allen Test ACCEPTAB; Arterial Base Excess -0.9 mmol/L (-3.0-3); Arterial Blood Gas Oxygen Sat 95.6 mmHG (95.0-100.0); Arterial COHb 0.1 % (0.0-3.0); Arterial Fraction of Oxyhgb 95.2 % (93.0-99.0); Arterial HCO3 26.7 mmol/L (22.0-26.0); Arterial MetHb 0.3 % (0.0-1.5); Arterial pCO2 58.1 mmhg (35-45); Blood Gas PS 10; MODE VENT - CPAP; Site Right Radial
[2017-11-07] MEDS ORDERED: NORepinephrine 8MG/250 ML (PMX 250 ML (21:38)
[2017-11-07] MEDS: ALBUMIN HUMAN 25% 50 ML IV (21:39)
[2017-11-07] MEDS: HEPARIN 1000 UNITS/ML 10 ML INJ CATHETER (23:04)
[2017-11-08] MEDS: ACCU-CHEK XX (02:00)
[2017-11-08 05:26] LABS: ADD MAN DIFF? NO
[2017-11-08] MEDS: PANTOPRAZOLE 40 MG INJ IV (05:26)
[2017-11-08] MEDS: METHYLPREDNISOLONE 40 MG INJ IV ×3 (05:26→22:12)
[2017-11-08 05:33] LABS: ABNORMAL IP MESSAGE 1; BASOPHIL # 0.1 10^3/ul (0.0-0.1); BASOPHILS % 0.4 % (0.0-2.0); HEMATOCRIT 34.6 % (37.0-47.0); HEMOGLOBIN 10.8 g/dl (12.0-16.0); LYMPHOCYTES # 2.5 10^3/ul (0.8-2.9); LYMPHOCYTES % 7.7 % (15.0-51.0); MEAN CORPUSCULAR HEMOGLOBIN 27.6 pg (29.0-33.0); MEAN CORPUSCULAR HGB CONC 31.2 g/dl (32.0-37.0); MEAN CORPUSCULAR VOLUME 88.5 fl (82.0-101.0); MEAN PLATELET VOLUME 11.1 fl (7.4-10.4); MONOCYTE # 1.9 10^3/ul (0.3-0.9); MONOCYTES % 5.7 % (0.0-11.0); NEUTROPHIL # 26.4 10^3/ul (1.6-7.5); NEUTROPHILS % 80.5 % (39.0-77.0); NUCLEATED RED BLOOD CELLS% 0.1 /100WBC (0.0-0.0); PLATELET COUNT 315 10^3/UL (140-415); RED BLOOD COUNT 3.91 10^6/ul (4.20-5.40); RED CELL DISTRIBUTION WIDTH 15.1 % (11.5-14.5)
[2017-11-08 05:33] LABS: WHITE BLOOD COUNT 32.8 10^3/ul (4.8-10.8)
[2017-11-08] MEDS: INSULIN ASPART [NOVOLOG] 3 ML PEN SC ×4 (05:39→18:08)
[2017-11-08 05:42] LABS: POSITIVE DIFF @See below
[2017-11-08 06:08] LABS: ANION GAP 20 (8-16); BLOOD UREA NITROGEN 84 mg/dl (7-20); CALCIUM 8.4 mg/dl (8.4-10.2); CARBON DIOXIDE 28 mmol/L (21-31); CHLORIDE 99 mmol/L (97-110); CREATININE 3.93 mg/dl (0.44-1.00); GLUCOSE 190 mg/dl (70-220); MAGNESIUM 2.2 mg/dl (1.7-2.5); PHOSPHORUS 6.7 mg/dl (2.5-4.9); POTASSIUM 4.5 mmol/L (3.5-5.1); SODIUM 142 mmol/L (135-144)
[2017-11-08] MEDS: CALCIUM ACETATE 667 MG CAP NGT ×3 (08:01→18:07)
[2017-11-08] MEDS: BUMETANIDE 2 MG in DEXTROSE 5% 17 ML IV ×3 (09:02→20:44)
[2017-11-08] MEDS: HEPARIN 5,000 UNIT/0.5 ML VIAL SC ×2 (09:03→20:48)
[2017-11-08 11:23] LABS: CREATININE,URINE RANDOM 28.06 mg/dl (20-320); PROTEIN/CREAT RATIO 0.78 RATIO
[2017-11-08 12:18] LABS: AADO2 Arterial 63.1 mmHg (7.0-24.0); Allen Test ACCEPTAB; Arterial Base Excess 2.2 mmol/L (-3.0-3); Arterial Blood Gas Oxygen Sat 95.2 mmHG (95.0-100.0); Arterial COHb 0.3 % (0.0-3.0); Arterial Fraction of Oxyhgb 94.6 % (93.0-99.0); Arterial HCO3 28.1 mmol/L (22.0-26.0); Arterial MetHb 0.3 % (0.0-1.5); Arterial Total Hemglobin 10.6 g/dl (12.0-18.0); Arterial pCO2 49.7 mmhg (35-45); Blood Gas PS 10; MODE VENT - CPAP; Site Right Radial
[2017-11-09] MEDS: INSULIN ASPART [NOVOLOG] 3 ML PEN SC ×5 (00:14→21:00)
[2017-11-09] MEDS: ACCU-CHEK XX (01:47)
[2017-11-09] MEDS: PANTOPRAZOLE 40 MG INJ IV (05:22)
[2017-11-09] MEDS: METHYLPREDNISOLONE 40 MG INJ IV ×3 (05:22→21:38)
[2017-11-09 05:58] LABS: ADD MAN DIFF? NO
[2017-11-09 06:02] LABS: WHITE BLOOD COUNT 23.4 10^3/ul (4.8-10.8)
[2017-11-09 06:02] LABS: BASOPHIL # 0.1 10^3/ul (0.0-0.1); BASOPHILS % 0.4 % (0.0-2.0); HEMATOCRIT 35.3 % (37.0-47.0); LYMPHOCYTES # 2.5 10^3/ul (0.8-2.9); LYMPHOCYTES % 10.6 % (15.0-51.0); MEAN CORPUSCULAR HEMOGLOBIN 27.8 pg (29.0-33.0); MEAN CORPUSCULAR HGB CONC 31.2 g/dl (32.0-37.0); MEAN CORPUSCULAR VOLUME 89.4 fl (82.0-101.0); MEAN PLATELET VOLUME 11.3 fl (7.4-10.4); MONOCYTE # 0.9 10^3/ul (0.3-0.9); MONOCYTES % 3.8 % (0.0-11.0); NEUTROPHIL # 18.8 10^3/ul (1.6-7.5); NEUTROPHILS % 80.3 % (39.0-77.0); PLATELET COUNT 339 10^3/UL (140-415); RED BLOOD COUNT 3.95 10^6/ul (4.20-5.40); RED CELL DISTRIBUTION WIDTH 15.1 % (11.5-14.5)
[2017-11-09 06:42] LABS: ALANINE AMINOTRANSFERASE 94 IU/L (13-69); ALBUMIN 3.5 g/dl (3.3-4.9); ALBUMIN/GLOBULIN RATIO 1.09; ALKALINE PHOSPHATASE 112 IU/L (42-121); ANION GAP 23 (8-16); ASPARTATE AMINO TRANSFERASE 46 IU/L (15-46); CARBON DIOXIDE 26 mmol/L (21-31); CHLORIDE 98 mmol/L (97-110); GLUCOSE 160 mg/dl (70-220); POTASSIUM 5.1 mmol/L (3.5-5.1); SODIUM 142 mmol/L (135-144); TOTAL PROTEIN 6.7 g/dl (6.1-8.1)
[2017-11-09 06:52] LABS: CREATININE 4.45 mg/dl (0.44-1.00)
[2017-11-09 06:56] LABS: BLOOD UREA NITROGEN 125 mg/dl (7-20)
[2017-11-09 08:39] LABS: AADO2 Arterial 41.3 mmHg (7.0-24.0); Allen Test ACCEPTAB; Arterial Base Excess -2.6 mmol/L (-3.0-3); Arterial Blood Gas Oxygen Sat 97.4 mmHG (95.0-100.0); Arterial COHb 0.2 % (0.0-3.0); Arterial Fraction of Oxyhgb 96.9 % (93.0-99.0); Arterial HCO3 24.3 mmol/L (22.0-26.0); Arterial MetHb 0.3 % (0.0-1.5); Arterial Total Hemglobin 8.5 g/dl (12.0-18.0); Arterial pCO2 53.3 mmhg (35-45); MODE NASAL CANNULA; Site Right Radial
[2017-11-09] MEDS: CALCIUM ACETATE 667 MG CAP NGT ×3 (09:41→18:49)
[2017-11-09] MEDS: BUMETANIDE 2 MG in DEXTROSE 5% 17 ML IV ×3 (09:41→22:43)
[2017-11-09] MEDS: HEPARIN 5,000 UNIT/0.5 ML VIAL SC ×2 (09:42→21:45)
[2017-11-09] MEDS: ALBUMIN HUMAN 25% 50 ML IV (18:34)
[2017-11-09] MEDS: HEPARIN 1000 UNITS/ML 10 ML INJ CATHETER (19:42)
[2017-11-10] MEDS: INSULIN ASPART [NOVOLOG] 3 ML PEN SC ×3 (01:00→08:39)
[2017-11-10] MEDS: ACCU-CHEK XX (02:19)
[2017-11-10 05:23] LABS: ADD MAN DIFF? NO
[2017-11-10 05:50] LABS: BASOPHIL # 0.1 10^3/ul (0.0-0.1); BASOPHILS % 0.3 % (0.0-2.0); HEMATOCRIT 35.7 % (37.0-47.0); LYMPHOCYTES # 1.9 10^3/ul (0.8-2.9); LYMPHOCYTES % 8.2 % (15.0-51.0); MEAN CORPUSCULAR HEMOGLOBIN 27.7 pg (29.0-33.0); MEAN CORPUSCULAR HGB CONC 30.8 g/dl (32.0-37.0); MEAN CORPUSCULAR VOLUME 89.9 fl (82.0-101.0); MEAN PLATELET VOLUME 11.1 fl (7.4-10.4); MONOCYTE # 0.9 10^3/ul (0.3-0.9); MONOCYTES % 3.7 % (0.0-11.0); NEUTROPHIL # 19.8 10^3/ul (1.6-7.5); NEUTROPHILS % 83.9 % (39.0-77.0); PLATELET COUNT 341 10^3/UL (140-415); RED BLOOD COUNT 3.97 10^6/ul (4.20-5.40); RED CELL DISTRIBUTION WIDTH 14.6 % (11.5-14.5)
[2017-11-10 05:50] LABS: WHITE BLOOD COUNT 23.6 10^3/ul (4.8-10.8)
[2017-11-10] MEDS: PANTOPRAZOLE 40 MG INJ IV (06:07)
[2017-11-10] MEDS: METHYLPREDNISOLONE 40 MG INJ IV (06:07)
[2017-11-10 06:15] LABS: ALANINE AMINOTRANSFERASE 80 IU/L (13-69); ALBUMIN 3.7 g/dl (3.3-4.9); ALBUMIN/GLOBULIN RATIO 1.23; ALKALINE PHOSPHATASE 105 IU/L (42-121); ANION GAP 19 (8-16); ASPARTATE AMINO TRANSFERASE 34 IU/L (15-46); BILIRUBIN,INDIRECT 0.1 mg/dl (0-1.1); BILIRUBIN,TOTAL 0.1 mg/dl (0.2-1.3); BLOOD UREA NITROGEN 87 mg/dl (7-20); CALCIUM 8.2 mg/dl (8.4-10.2); CARBON DIOXIDE 27 mmol/L (21-31); CHLORIDE 98 mmol/L (97-110); CREATININE 3.89 mg/dl (0.44-1.00); GLUCOSE 132 mg/dl (70-220); POTASSIUM 5.2 mmol/L (3.5-5.1); SODIUM 139 mmol/L (135-144); TOTAL PROTEIN 6.7 g/dl (6.1-8.1)
[2017-11-10] MEDS: CALCIUM ACETATE 667 MG CAP NGT ×3 (08:38→18:18)
[2017-11-10] MEDS: HEPARIN 5,000 UNIT/0.5 ML VIAL SC ×2 (08:41→20:38)
[2017-11-10] MEDS: BUMETANIDE 2 MG in DEXTROSE 5% 17 ML IV ×2 (09:00→21:00)
[2017-11-10] MEDS ORDERED: SOD CHLORIDE 0.9% 1,000 ML IV (09:43)
[2017-11-10] MEDS ORDERED: HEPARIN 1000 UNITS/ML 10 ML INJ CATHETER (10:00)
[2017-11-10] MEDS ORDERED: ALBUMIN HUMAN 25% 50 ML IV (10:00)
[2017-11-10] MEDS: HEPARIN 1000 UNITS/ML 10 ML INJ CATHETER (18:04)
[2017-11-10] MEDS: SALMETEROL/FLUTICASONE 250/50 INHA INH (20:19)
[2017-11-11] MEDS: ACCU-CHEK XX ×2 (02:00→23:13)
[2017-11-11 08:45] LABS: ADD MAN DIFF? NO
[2017-11-11] MEDS: SALMETEROL/FLUTICASONE 250/50 INHA INH ×2 (08:49→20:44)
[2017-11-11] MEDS: CALCIUM ACETATE 667 MG CAP NGT ×3 (08:49→17:59)
[2017-11-11] MEDS: HEPARIN 5,000 UNIT/0.5 ML VIAL SC ×2 (08:51→20:52)
[2017-11-11 08:52] LABS: BASOPHIL # 0.1 10^3/ul (0.0-0.1); BASOPHILS % 0.3 % (0.0-2.0); EOSINOPHILS % 0.2 % (0.0-7.0); HEMATOCRIT 36.4 % (37.0-47.0); HEMOGLOBIN 11.1 g/dl (12.0-16.0); LYMPHOCYTES # 3.1 10^3/ul (0.8-2.9); LYMPHOCYTES % 16.1 % (15.0-51.0); MEAN CORPUSCULAR HEMOGLOBIN 27.8 pg (29.0-33.0); MEAN CORPUSCULAR HGB CONC 30.5 g/dl (32.0-37.0); MEAN CORPUSCULAR VOLUME 91.2 fl (82.0-101.0); MEAN PLATELET VOLUME 11.4 fl (7.4-10.4); MONOCYTE # 1.3 10^3/ul (0.3-0.9); MONOCYTES % 6.6 % (0.0-11.0); PLATELET COUNT 329 10^3/UL (140-415); RED BLOOD COUNT 3.99 10^6/ul (4.20-5.40); RED CELL DISTRIBUTION WIDTH 14.5 % (11.5-14.5)
[2017-11-11] MEDS: BUMETANIDE 2 MG in DEXTROSE 5% 17 ML IV ×2 (09:00→20:43)
[2017-11-11 09:16] LABS: ANION GAP 15 (8-16); BLOOD UREA NITROGEN 76 mg/dl (7-20); CALCIUM 8.3 mg/dl (8.4-10.2); CARBON DIOXIDE 28 mmol/L (21-31); CHLORIDE 101 mmol/L (97-110); GLUCOSE 119 mg/dl (70-220); MAGNESIUM 2.3 mg/dl (1.7-2.5); PHOSPHORUS 6.5 mg/dl (2.5-4.9); POTASSIUM 4.4 mmol/L (3.5-5.1); SODIUM 140 mmol/L (135-144)
[2017-11-11 10:23] LABS: CREATININE 3.92 mg/dl (0.44-1.00)
[2017-11-11 21:05] LABS: AADO2 Arterial 37.7 mmHg (7.0-24.0); Allen Test ACCEPTAB; Arterial Base Excess -1.3 mmol/L (-3.0-3); Arterial Blood Gas Oxygen Sat 96.8 mmHG (95.0-100.0); Arterial COHb 0.4 % (0.0-3.0); Arterial Fraction of Oxyhgb 96.2 % (93.0-99.0); Arterial HCO3 25.7 mmol/L (22.0-26.0); Arterial MetHb 0.2 % (0.0-1.5); Arterial Total Hemglobin 12.8 g/dl (12.0-18.0); Arterial pCO2 52.5 mmhg (35-45); MODE NASAL CANNULA; Site Right Radial
[2017-11-12 07:49] LABS: ALANINE AMINOTRANSFERASE 54 IU/L (13-69); ALBUMIN 3.3 g/dl (3.3-4.9); ALKALINE PHOSPHATASE 91 IU/L (42-121); ANION GAP 18 (8-16); ASPARTATE AMINO TRANSFERASE 25 IU/L (15-46); BILIRUBIN,INDIRECT 0.2 mg/dl (0-1.1); BILIRUBIN,TOTAL 0.2 mg/dl (0.2-1.3); BLOOD UREA NITROGEN 109 mg/dl (7-20); CALCIUM 8.3 mg/dl (8.4-10.2); CARBON DIOXIDE 26 mmol/L (21-31); CHLORIDE 99 mmol/L (97-110); GLUCOSE 118 mg/dl (70-220); POTASSIUM 4.9 mmol/L (3.5-5.1); SODIUM 138 mmol/L (135-144); TOTAL PROTEIN 6.3 g/dl (6.1-8.1)
[2017-11-12 07:59] LABS: CREATININE 4.66 mg/dl (0.44-1.00)
[2017-11-12] MEDS: CALCIUM ACETATE 667 MG CAP NGT ×3 (08:23→18:15)
[2017-11-12] MEDS: SALMETEROL/FLUTICASONE 250/50 INHA INH ×2 (08:23→20:34)
[2017-11-12] MEDS: BUMETANIDE 2 MG in DEXTROSE 5% 17 ML IV ×2 (08:24→20:34)
[2017-11-12] MEDS: HEPARIN 5,000 UNIT/0.5 ML VIAL SC ×2 (09:11→20:47)
[2017-11-12] MEDS: morphine 2 MG INJ IV ×3 (09:52→17:01)
[2017-11-12] MEDS: INFLUENZA VIRUS VACCINE 0.5 ML SYG IM* (12:43)
[2017-11-12] MEDS: ALBUMIN HUMAN 25% 50 ML IV (14:42)
[2017-11-12] MEDS: HEPARIN 1000 UNITS/ML 10 ML INJ CATHETER (16:30)
[2017-11-13] MEDS: morphine 2 MG INJ IV (00:31)
[2017-11-13] MEDS: ACCU-CHEK XX (02:00)
[2017-11-13] MEDS: CALCIUM ACETATE 667 MG CAP NGT ×3 (07:58→18:00)
[2017-11-13] MEDS: SALMETEROL/FLUTICASONE 250/50 INHA INH ×2 (09:28→21:34)
[2017-11-13] MEDS: HEPARIN 5,000 UNIT/0.5 ML VIAL SC ×2 (09:49→21:39)
[2017-11-13] MEDS: BUMETANIDE 2 MG in DEXTROSE 5% 17 ML IV ×2 (11:02→21:34)
[2017-11-13 12:03] LABS: ADD MAN DIFF? NO
[2017-11-13 12:19] LABS: WHITE BLOOD COUNT 15.9 10^3/ul (4.8-10.8)
[2017-11-13 12:19] LABS: BASOPHIL # 0.1 10^3/ul (0.0-0.1); BASOPHILS % 0.3 % (0.0-2.0); EOSINOPHILS # 0.1 10^3/ul (0.0-0.5); EOSINOPHILS % 0.8 % (0.0-7.0); HEMATOCRIT 34.5 % (37.0-47.0); HEMOGLOBIN 10.5 g/dl (12.0-16.0); LYMPHOCYTES # 2.3 10^3/ul (0.8-2.9); LYMPHOCYTES % 14.3 % (15.0-51.0); MEAN CORPUSCULAR HEMOGLOBIN 27.9 pg (29.0-33.0); MEAN CORPUSCULAR HGB CONC 30.4 g/dl (32.0-37.0); MEAN CORPUSCULAR VOLUME 91.8 fl (82.0-101.0); MEAN PLATELET VOLUME 11.6 fl (7.4-10.4); MONOCYTE # 1.1 10^3/ul (0.3-0.9); MONOCYTES % 6.8 % (0.0-11.0); NEUTROPHIL # 12.1 10^3/ul (1.6-7.5); NEUTROPHILS % 76.5 % (39.0-77.0); PLATELET COUNT 259 10^3/UL (140-415); RED BLOOD COUNT 3.76 10^6/ul (4.20-5.40); RED CELL DISTRIBUTION WIDTH 14.6 % (11.5-14.5)
[2017-11-13] MEDS: ONDANSETRON 4 MG INJ IV (12:22)
[2017-11-13 12:38] LABS: ANION GAP 16 (8-16); BLOOD UREA NITROGEN 73 mg/dl (7-20); CALCIUM 8.8 mg/dl (8.4-10.2); CARBON DIOXIDE 29 mmol/L (21-31); CHLORIDE 99 mmol/L (97-110); GLUCOSE 113 mg/dl (70-220); POTASSIUM 4.9 mmol/L (3.5-5.1); SODIUM 139 mmol/L (135-144)
[2017-11-13] MEDS ORDERED: MIDAZOLAM 1 MG/ML 2 ML INJ (17:10)
[2017-11-13] MEDS ORDERED: FENTAnyl 50 MCG/ML VIAL (17:10)
[2017-11-13] MEDS ORDERED: LIDOCAINE 1% (MDV) 20 ML INJ (17:10)
[2017-11-13] MEDS ORDERED: HEPARIN 1000 UNITS/NS (A-LINE) 1,000 ML (17:10)
[2017-11-13] MEDS ORDERED: HEPARIN 1000 UNITS/ML 10 ML INJ (17:10)
[2017-11-14] MEDS: ACCU-CHEK XX (02:00)
[2017-11-14] MEDS: BUMETANIDE 2 MG in DEXTROSE 5% 17 ML IV ×2 (08:38→20:55)
[2017-11-14] MEDS: SALMETEROL/FLUTICASONE 250/50 INHA INH ×2 (08:38→20:48)
[2017-11-14] MEDS: morphine 2 MG INJ IV ×2 (08:38→14:37)
[2017-11-14] MEDS: CALCIUM ACETATE 667 MG CAP NGT ×3 (08:38→17:02)
[2017-11-14] MEDS: HEPARIN 5,000 UNIT/0.5 ML VIAL SC ×2 (09:05→21:09)
[2017-11-14] MEDS: ONDANSETRON 4 MG INJ IV ×2 (12:52→17:06)
[2017-11-14] MEDS: ALBUMIN HUMAN 25% 50 ML IV (14:44)
[2017-11-14] MEDS: HEPARIN 1000 UNITS/ML 10 ML INJ CATHETER (16:56)
[2017-11-15] MEDS: ACCU-CHEK XX (02:00)
[2017-11-15 06:45] LABS: ANION GAP 16 (8-16); BLOOD UREA NITROGEN 41 mg/dl (7-20); CALCIUM 8.5 mg/dl (8.4-10.2); CARBON DIOXIDE 25 mmol/L (21-31); CHLORIDE 101 mmol/L (97-110); GLUCOSE 98 mg/dl (70-220); POTASSIUM 4.7 mmol/L (3.5-5.1); SODIUM 137 mmol/L (135-144)
[2017-11-15] MEDS: CALCIUM ACETATE 667 MG CAP NGT ×3 (08:47→17:24)
[2017-11-15] MEDS: SALMETEROL/FLUTICASONE 250/50 INHA INH ×2 (08:47→22:32)
[2017-11-15] MEDS: BUMETANIDE 2 MG in DEXTROSE 5% 17 ML IV ×2 (08:47→22:33)
[2017-11-15] MEDS: HEPARIN 5,000 UNIT/0.5 ML VIAL SC ×2 (08:48→22:00)
[2017-11-15] MEDS: ONDANSETRON 4 MG INJ IV ×2 (11:33→17:11)
[2017-11-15] MEDS ORDERED: ALBUTEROL/IPRATROPIUM (NEB) 3 ML AMP HHN (22:00)
[2017-11-16] MEDS: ACCU-CHEK XX (02:00)
[2017-11-16 06:42] LABS: ANION GAP 14 (8-16); BLOOD UREA NITROGEN 56 mg/dl (7-20); CALCIUM 8.6 mg/dl (8.4-10.2); CARBON DIOXIDE 28 mmol/L (21-31); CHLORIDE 102 mmol/L (97-110); GLUCOSE 100 mg/dl (70-220); POTASSIUM 4.7 mmol/L (3.5-5.1); SODIUM 139 mmol/L (135-144)
[2017-11-16 06:50] LABS: CREATININE 4.32 mg/dl (0.44-1.00)
[2017-11-16] MEDS: ALBUMIN HUMAN 25% 50 ML IV (07:02)
[2017-11-16] MEDS: HEPARIN 1000 UNITS/ML 10 ML INJ CATHETER (08:36)
[2017-11-16] MEDS: SALMETEROL/FLUTICASONE 250/50 INHA INH (09:00)
[2017-11-16] MEDS: CALCIUM ACETATE 667 MG CAP NGT ×2 (09:01→12:15)
[2017-11-16] MEDS: BUMETANIDE 2 MG in DEXTROSE 5% 17 ML IV (09:01)
[2017-11-16] MEDS: HEPARIN 5,000 UNIT/0.5 ML VIAL SC (09:05)
[2017-11-16] MEDS: ONDANSETRON 4 MG INJ IV (10:18)
[2017-11-17] MEDS ORDERED: BUMETANIDE 1 MG TAB PO (06:00)
== END 2017-11-16 19:05 | disposition home health service (06) | DRG 870 ==
LOC: TEL 11-10 13:36 → E/R 03:55 → MS2 11-15 19:06 → ICU 13:10
PROVIDERS: Family Medicine
PROC: 0JH63XZ Insertion of Tunneled Vascular Access Device into Chest Subcutaneous Tissue and Fascia, Percutaneous Approach (ICD-10-PCS; 2017-11-13 17:00)
PROC: 05HM33Z Insertion of Infusion Device into Right Internal Jugular Vein, Percutaneous Approach (ICD-10-PCS; 2017-11-13 17:00)
PROC: B513YZA Fluoroscopy of Right Jugular Veins using Other Contrast, Guidance (ICD-10-PCS; 2017-11-13 17:00)
PROC: 5A1955Z Respiratory Ventilation, Greater than 96 Consecutive Hours (ICD-10-PCS; principal; 2017-11-13 17:05)
PROC: 0BH17EZ Insertion of Endotracheal Airway into Trachea, Via Natural or Artificial Opening (ICD-10-PCS; 2017-11-13 17:05)
PROC: 06HN33Z Insertion of Infusion Device into Left Femoral Vein, Percutaneous Approach (ICD-10-PCS; 2017-11-13 17:05)
PROC: 06HM33Z Insertion of Infusion Device into Right Femoral Vein, Percutaneous Approach (ICD-10-PCS; 2017-11-13 17:05)
PROC: 5A1D70Z Performance of Urinary Filtration, Intermittent, Less than 6 Hours Per Day (ICD-10-PCS; 2017-11-13 17:05)
DX: A41.9 Sepsis, unspecified organism (principal); N17.0 Acute kidney failure with tubular necrosis; J18.9 Pneumonia, unspecified organism; R65.21 Severe sepsis with septic shock; G62.81 Critical illness polyneuropathy; G93.41 Metabolic encephalopathy; J96.01 Acute respiratory failure with hypoxia; J96.02 Acute respiratory failure with hypercapnia; J44.0 Chronic obstructive pulmonary disease with (acute) lower respiratory infection; N18.6 End stage renal disease; E87.0 Hyperosmolality and hypernatremia; E87.2 Acidosis; N39.0 Urinary tract infection, site not specified; J44.1 Chronic obstructive pulmonary disease with (acute) exacerbation; I12.0 Hypertensive chronic kidney disease with stage 5 chronic kidney disease or end stage renal disease; I95.9 Hypotension, unspecified; E11.65 Type 2 diabetes mellitus with hyperglycemia; E11.21 Type 2 diabetes mellitus with diabetic nephropathy; E11.22 Type 2 diabetes mellitus with diabetic chronic kidney disease; S09.90XA Unspecified injury of head, initial encounter; B96.1 Klebsiella pneumoniae [K. pneumoniae] as the cause of diseases classified elsewhere; N28.1 Cyst of kidney, acquired; E83.39 Other disorders of phosphorus metabolism; E66.01 Morbid (severe) obesity due to excess calories; E03.9 Hypothyroidism, unspecified; E78.5 Hyperlipidemia, unspecified; G47.33 Obstructive sleep apnea (adult) (pediatric); N20.0 Calculus of kidney; S00.03XA Contusion of scalp, initial encounter; S02.2XXA Fracture of nasal bones, initial encounter for closed fracture; W18.30XA Fall on same level, unspecified, initial encounter; Z68.37 Body mass index [BMI] 37.0-37.9, adult; Z87.891 Personal history of nicotine dependence; Z79.84 Long term (current) use of oral hypoglycemic drugs; Z99.2 Dependence on renal dialysis
CPT/HCPCS: 31500; 36415; 36600; 70450; 70486; 71045; 71250; 72125; 72131; 76775; 76937; 80048; 80053; 80076; 80202; 81001; 81003; 82550; 82553; 82570; 82803; 82962; 83036; 83605; 83735; 84100; 84300; 84439; 84443; 84484; 85025; 85610; 85730; 86704; 86706; 86709; 86803; 87040; 87070; 87081; 87086; 87340; 87400; 89190; 90686; 90935; 92526; 92610; 93005; 93306; 94002; 94003; 94660; 94770; 95819; 96374; 96375; 97110; 97162; 97530; 99291-25

== ENCOUNTER 2018-02-02 17:51 | Inpatient (IN) | payer OTHER, MEDICARE ==
[2018-02-02] MEDS: NYSTATIN 15 GM OINT TOP (02:30)
[2018-02-02 18:20] LABS: ABNORMAL IP MESSAGE 1; HEMATOCRIT 41.9 % (37.0-47.0); HEMOGLOBIN 11.6 g/dl (12.0-16.0); MEAN CORPUSCULAR HEMOGLOBIN 29.4 pg (29.0-33.0); MEAN CORPUSCULAR HGB CONC 27.7 g/dl (32.0-37.0); MEAN CORPUSCULAR VOLUME 106.1 fl (82.0-101.0); MEAN PLATELET VOLUME 10.9 fl (7.4-10.4); NUCLEATED RED BLOOD CELLS% 0.4 /100WBC (0.0-0.0); PLATELET COUNT 358 10^3/UL (140-415); RED BLOOD COUNT 3.95 10^6/ul (4.20-5.40); RED CELL DISTRIBUTION WIDTH 12.5 % (11.5-14.5)
[2018-02-02 18:20] LABS: WHITE BLOOD COUNT 18.1 10^3/ul (4.8-10.8)
[2018-02-02] MEDS: PROPOFOL 100 ML IV (18:21)
[2018-02-02] MEDS: CALCIUM GLUCONATE 10% 2 GM in DEXTROSE 5% 100 ML IVPB (18:21)
[2018-02-02 18:30] LABS: ADD MAN DIFF? YES; POSITIVE DIFF @See below
[2018-02-02] MEDS: ALBUTEROL 0.083% (NEB) 2.5 MG/3 ML AMP HHN (18:31)
[2018-02-02 18:36] LABS: PARTIAL THROMBOPLASTIN TIME 29.1 Sec (25.0-35.0); PROTIME 13.3 Sec (11.9-14.9)
[2018-02-02] MEDS: HYDROCORTISONE 100 MG INJ IV (18:42)
[2018-02-02 18:43] LABS: ALANINE AMINOTRANSFERASE 63 IU/L (13-69); ALBUMIN 3.7 g/dl (3.3-4.9); ALBUMIN/GLOBULIN RATIO 1.05; ALKALINE PHOSPHATASE 135 IU/L (42-121); ANION GAP 18 (8-16); ASPARTATE AMINO TRANSFERASE 91 IU/L (15-46); BILIRUBIN,INDIRECT 0.2 mg/dl (0-1.1); BILIRUBIN,TOTAL 0.2 mg/dl (0.2-1.3); BLOOD UREA NITROGEN 26 mg/dl (7-20); CALCIUM 9.1 mg/dl (8.4-10.2); CARBON DIOXIDE 36 mmol/L (21-31); CHLORIDE 99 mmol/L (97-110); CREATININE 1.38 mg/dl (0.44-1.00); GLUCOSE 182 mg/dl (70-220); LIPASE 275 U/L (23-300); POTASSIUM 4.7 mmol/L (3.5-5.1); SODIUM 148 mmol/L (135-144); TOTAL PROTEIN 7.2 g/dl (6.1-8.1)
[2018-02-02 18:50] LABS: AADO2 Arterial 61.5 mmHg (7.0-24.0); Allen Test ACCEPTAB; Arterial COHb 0.5 % (0.0-3.0); Arterial HCO3 35.7 mmol/L (22.0-26.0); Arterial MetHb 0.5 % (0.0-1.5); Arterial Total Hemglobin 12.1 g/dl (12.0-18.0); Arterial pCO2 82.9 mmhg (35-45); MODE VENT - AC; Site Right Radial
[2018-02-02 18:54] LABS: TROPONIN-I 0.017 ng/ml (0.00-0.12)
[2018-02-02 18:55] LABS: LACTIC ACID 4.6 mmol/L (0.5-2.0)
[2018-02-02] MEDS: CEFTRIAXONE 1 GM/50 ML (PMX) 50 ML IVPB (19:04)
[2018-02-02 19:05] LABS: FREE T4 (FREE THYROXINE) 1.98 ng/dl (0.78-2.44)
[2018-02-02 19:05] LABS: ANISOCYTOSIS 1+ (0-0); BAND NEUTROPHILS #M 0.3 10^3/ul (0.0-0.6); BAND NEUTROPHILS % (M) 2 % (0-4); BASOPHIL #M 0.1 10^3/ul (0.0-0.0); BASOPHILS % (M) 1 % (0-2); EOSINOPHILS % (M) 1 % (0-7); GIANT THROMBO% (M) 1 % (0-0); LYMPHOCYTES #M 3.2 10^3/ul (0.8-2.9); LYMPHOCYTES % (M) 18 % (15-51); MONOCYTE #M 1.2 10^3/ul (0.3-0.9); MONOCYTES % (M) 7 % (0-11); PLATELET ESTIMATE NORMAL; POLYCHROMASIA 3+ (0-0); SEG NEUT #M 12.9 10^3/ul (1.6-7.5); SEGMENTED NEUTROPHILS (M) % 71 % (39-77); SMUDGE%M 2 % (0-0)
[2018-02-02 19:21] LABS: FREE T3 3.55 pg/ml (2.77-5.27)
[2018-02-02] MEDS: MIDAZOLAM (DRIP) 50 mg/50 mL 50 ML IV (19:27)
[2018-02-02] MEDS: FUROSEMIDE 40 MG INJ IV (19:34)
[2018-02-02 19:35] LABS: THYROID STIMULATING HORMONE 0.158 MIU/L (0.465-4.680)
[2018-02-02] MEDS: FLUCONAZOLE 400 MG/NS (PMX) 200 ML IVPB (19:40)
[2018-02-02 20:10] LABS: ADD UMIC YES; UR ASCORBIC ACID NEGATIVE (NEGATIVE); UR BACTERIA FEW /HPF (NONE SEEN); UR BILIRUBIN (Dip) NEGATIVE (NEGATIVE); UR BLOOD (Dip) NEGATIVE (NEGATIVE); UR CLARITY SLIGHTLY CLOUDY (CLEAR); UR COLOR YELLOW (YELLOW); UR GLUCOSE (Dip) NEGATIVE (NEGATIVE); UR GRANULAR CAST FEW /HPF (NONE SEEN); UR KETONES (Dip) NEGATIVE (NEGATIVE); UR LEUKOCYTE ESTERASE (Dip) NEGATIVE Leu/ul (NEGATIVE); UR MUCUS FEW /HPF (NONE SEEN); UR NITRITE (Dip) NEGATIVE (NEGATIVE); UR RBC 2 /HPF (0-5); UR SPECIFIC GRAVITY (Dip) 1.012 (1.003-1.030); UR TOTAL PROTEIN (Dip) 1+ mg/dl (NEGATIVE); UR UROBILINOGEN (Dip) NEGATIVE (NEGATIVE); UR WBC 5 /HPF (0-5)
[2018-02-02] MEDS: VANCOMYCIN 1 GM (PMX) 250 ML IVPB (20:15)
[2018-02-02 21:30] LABS: LACTIC ACID 2.9 mmol/L (0.5-2.0)
[2018-02-02] MEDS: LORAZEPAM 2 MG INJ IV (22:23)
[2018-02-02 22:36] LABS: B-TYPE NATRIURETIC PEPTIDE 4530 PG/ML (0-125)
[2018-02-02] MEDS: DILTIAZEM 50 MG INJ IV (22:46)
[2018-02-02] MEDS: ALBUMIN HUMAN 25% 100 ML IV (23:08)
[2018-02-02 23:43] LABS: LACTIC ACID 2.5 mmol/L (0.5-2.0)
[2018-02-03] MEDS ORDERED: DILTIAZEM 25 MG INJ (00:57)
[2018-02-03] MEDS: DILTIAZEM 25 MG INJ IV (01:11)
[2018-02-03 01:25] LABS: AADO2 Arterial 123.7 mmHg (7.0-24.0); Allen Test ACCEPTAB; Arterial Base Excess 8.7 mmol/L (-3.0-3); Arterial Blood Gas Oxygen Sat 98.2 mmHG (95.0-100.0); Arterial COHb 0 % (0.0-3.0); Arterial Fraction of Oxyhgb 97.9 % (93.0-99.0); Arterial HCO3 32.7 mmol/L (22.0-26.0); Arterial MetHb 0.3 % (0.0-1.5); Arterial Total Hemglobin 10.8 g/dl (12.0-18.0); MODE VENT - AC; Site Right Radial
[2018-02-03] MEDS: ALBUMIN HUMAN 25% 100 ML IV (01:26)
[2018-02-03] MEDS: DILTIAZEM 50 MG INJ IV (01:28)
[2018-02-03] MEDS ORDERED: GLUCOSE GEL 15 GRAM TUBE BUCCAL (02:00)
[2018-02-03] MEDS ORDERED: ACETAMINOPHEN 650 MG SUPP PR (02:00)
[2018-02-03] MEDS ORDERED: GLUCAGON 1 MG INJ IM (02:00)
[2018-02-03] MEDS ORDERED: GLUCOSE GEL 15 GRAM TUBE PO ×2 (02:00)
[2018-02-03] MEDS ORDERED: VANCOMYCIN IV PER PHARMACY XX (02:00)
[2018-02-03] MEDS ORDERED: ACCU-CHEK XX (02:00)
[2018-02-03] MEDS ORDERED: DEXTROSE 50% 50 ML SYRINGE IV ×2 (02:00)
[2018-02-03] MEDS: PIPER-TAZO 2.25 GM (PMX) 50 ML IVPB ×4 (02:42→17:15)
[2018-02-03] MEDS: PROPOFOL 100 ML IV ×2 (02:54→14:51)
[2018-02-03] MEDS: ENOXAPARIN 100 MG/ML SYG SC (03:41)
[2018-02-03] MEDS: INSULIN ASPART [NOVOLOG] 3 ML PEN SC ×5 (05:00→20:55)
[2018-02-03] MEDS: PANTOPRAZOLE 40 MG INJ IV (05:12)
[2018-02-03] MEDS: LEVOTHYROXINE 100 MCG VIAL IV (05:12)
[2018-02-03] MEDS: METHYLPREDNISOLONE 40 MG INJ IV (05:12)
[2018-02-03] MEDS: IPRATROPIUM (HFA) 12.9 GM INHALER INH ×5 (05:49→20:01)
[2018-02-03] MEDS: ALBUTEROL HFA 8 GM INHALER INH ×5 (05:49→20:00)
[2018-02-03 05:52] LABS: ADD MAN DIFF? NO
[2018-02-03 05:58] LABS: BASOPHILS % 0.3 % (0.0-2.0); HEMATOCRIT 32.6 % (37.0-47.0); HEMOGLOBIN 9.8 g/dl (12.0-16.0); LYMPHOCYTES % 17.2 % (15.0-51.0); MEAN CORPUSCULAR HEMOGLOBIN 29.3 pg (29.0-33.0); MEAN CORPUSCULAR HGB CONC 30.1 g/dl (32.0-37.0); MEAN CORPUSCULAR VOLUME 97.3 fl (82.0-101.0); MONOCYTE # 0.9 10^3/ul (0.3-0.9); MONOCYTES % 7.5 % (0.0-11.0); NEUTROPHIL # 8.6 10^3/ul (1.6-7.5); NEUTROPHILS % 74.5 % (39.0-77.0); PLATELET COUNT 241 10^3/UL (140-415); RED BLOOD COUNT 3.35 10^6/ul (4.20-5.40); RED CELL DISTRIBUTION WIDTH 12.4 % (11.5-14.5)
[2018-02-03 05:58] LABS: WHITE BLOOD COUNT 11.5 10^3/ul (4.8-10.8)
[2018-02-03 06:17] LABS: LACTIC ACID 1.2 mmol/L (0.5-2.0)
[2018-02-03 06:29] LABS: ALANINE AMINOTRANSFERASE 58 IU/L (13-69); ALBUMIN 3.3 g/dl (3.3-4.9); ALBUMIN/GLOBULIN RATIO 1.32; ALKALINE PHOSPHATASE 90 IU/L (42-121); ASPARTATE AMINO TRANSFERASE 50 IU/L (15-46); BILIRUBIN,INDIRECT 0.4 mg/dl (0-1.1); BILIRUBIN,TOTAL 0.4 mg/dl (0.2-1.3); BLOOD UREA NITROGEN 31 mg/dl (7-20); CALCIUM 9.4 mg/dl (8.4-10.2); CHLORIDE 99 mmol/L (97-110); CREATININE 1.23 mg/dl (0.44-1.00); GLUCOSE 96 mg/dl (70-220); MAGNESIUM 1.7 mg/dl (1.7-2.5); POTASSIUM 3.9 mmol/L (3.5-5.1); SODIUM 150 mmol/L (135-144); TOTAL PROTEIN 5.8 g/dl (6.1-8.1)
[2018-02-03 06:36] LABS: ANION GAP 14 (8-16)
[2018-02-03 06:37] LABS: CARBON DIOXIDE 41 mmol/L (21-31)
[2018-02-03 06:43] LABS: HEMOGLOBIN A1C 5.6 % (0-5.9)
[2018-02-03 06:56] LABS: THYROID STIMULATING HORMONE 0.031 MIU/L (0.465-4.680)
[2018-02-03] MEDS: DILTIAZEM-D5W 125MG/125ML DRIP 125 ML IV (08:19)
[2018-02-03] MEDS: FUROSEMIDE 20 MG INJ IV ×2 (09:43→17:15)
[2018-02-03] MEDS: NYSTATIN 15 GM OINT TOP (10:02)
[2018-02-03] MEDS ORDERED: DILTIAZEM (CD) 180 MG CAP PO (11:00)
[2018-02-03] MEDS: DEXTROSE 5% 1,000 ML IV (13:11)
[2018-02-03] MEDS: DILTIAZEM 90 MG TAB NGT ×2 (13:11→20:48)
[2018-02-03] MEDS: NYSTATIN 30 GM POWDER BTL TOP ×3 (15:56→20:48)
[2018-02-03] MEDS: ACETAMINOPHEN 650MG/20.3ML CUP NGT (17:15)
[2018-02-03] MEDS: VANCOMYCIN 1 GM 250 ML IVPB (20:47)
[2018-02-04] MEDS: PIPER-TAZO 2.25 GM (PMX) 50 ML IVPB ×4 (00:37→17:33)
[2018-02-04] MEDS: INSULIN ASPART [NOVOLOG] 3 ML PEN SC ×6 (00:40→20:25)
[2018-02-04 02:11] LABS: SODIUM,URINE RANDOM 141 mmol/L (30-90)
[2018-02-04 02:15] LABS: CREATININE,URINE RANDOM 44.89 mg/dl (20-320); PROTEIN/CREAT RATIO 0.35 RATIO
[2018-02-04] MEDS: PROPOFOL 100 ML IV ×2 (03:00→14:00)
[2018-02-04] MEDS: IPRATROPIUM (HFA) 12.9 GM INHALER INH ×6 (04:00→21:30)
[2018-02-04] MEDS: ALBUTEROL HFA 8 GM INHALER INH ×6 (04:00→21:30)
[2018-02-04] MEDS: ENOXAPARIN 100 MG/ML SYG SC (04:14)
[2018-02-04 04:49] LABS: OSMOLALITY,URINE 452 mOsm/kg (250-1200)
[2018-02-04] MEDS: FUROSEMIDE 20 MG INJ IV (05:02)
[2018-02-04] MEDS: LEVOTHYROXINE 100 MCG VIAL IV (05:02)
[2018-02-04] MEDS: PANTOPRAZOLE 40 MG INJ IV (05:02)
[2018-02-04 05:32] LABS: ADD MAN DIFF? NO
[2018-02-04 05:38] LABS: WHITE BLOOD COUNT 13.1 10^3/ul (4.8-10.8)
[2018-02-04 05:38] LABS: BASOPHILS % 0.2 % (0.0-2.0); EOSINOPHILS % 0.1 % (0.0-7.0); LYMPHOCYTES # 1.9 10^3/ul (0.8-2.9); LYMPHOCYTES % 14.3 % (15.0-51.0); MEAN CORPUSCULAR HEMOGLOBIN 29.2 pg (29.0-33.0); MEAN CORPUSCULAR HGB CONC 31.3 g/dl (32.0-37.0); MEAN CORPUSCULAR VOLUME 93.3 fl (82.0-101.0); MONOCYTES % 7.5 % (0.0-11.0); NEUTROPHIL # 10.2 10^3/ul (1.6-7.5); NEUTROPHILS % 77.4 % (39.0-77.0); PLATELET COUNT 256 10^3/UL (140-415); RED BLOOD COUNT 3.43 10^6/ul (4.20-5.40); RED CELL DISTRIBUTION WIDTH 13.2 % (11.5-14.5)
[2018-02-04 05:58] LABS: ALANINE AMINOTRANSFERASE 43 IU/L (13-69); ALBUMIN 3.1 g/dl (3.3-4.9); ALBUMIN/GLOBULIN RATIO 1.19; ALKALINE PHOSPHATASE 84 IU/L (42-121); ASPARTATE AMINO TRANSFERASE 25 IU/L (15-46); BILIRUBIN,INDIRECT 0.3 mg/dl (0-1.1); BILIRUBIN,TOTAL 0.3 mg/dl (0.2-1.3); BLOOD UREA NITROGEN 39 mg/dl (7-20); CALCIUM 8.9 mg/dl (8.4-10.2); CHLORIDE 95 mmol/L (97-110); CREATININE 1.51 mg/dl (0.44-1.00); GLUCOSE 148 mg/dl (70-220); MAGNESIUM 1.7 mg/dl (1.7-2.5); POTASSIUM 3.5 mmol/L (3.5-5.1); SODIUM 145 mmol/L (135-144); TOTAL PROTEIN 5.7 g/dl (6.1-8.1)
[2018-02-04 06:14] LABS: ANION GAP 12 (8-16)
[2018-02-04 06:17] LABS: CARBON DIOXIDE 42 mmol/L (21-31)
[2018-02-04 08:24] LABS: Allen Test ACCEPTAB; Arterial Base Excess 13.3 mmol/L (-3.0-3); Arterial Blood Gas Oxygen Sat 97.1 mmHG (95.0-100.0); Arterial COHb 0.2 % (0.0-3.0); Arterial Fraction of Oxyhgb 96.7 % (93.0-99.0); Arterial MetHb 0.2 % (0.0-1.5); Arterial Total Hemglobin 11.8 g/dl (12.0-18.0); Arterial pCO2 43.2 mmhg (35-45); MODE VENT - AC; Site Left Radial
[2018-02-04] MEDS: DILTIAZEM 90 MG TAB NGT ×2 (08:39→20:25)
[2018-02-04] MEDS: NYSTATIN 30 GM POWDER BTL TOP ×2 (08:40→20:25)
[2018-02-04] MEDS: MAGNESIUM SULFATE 2 GM/50 ML 50 ML IVPB (09:31)
[2018-02-04] MEDS: POTASSIUM CHLORIDE 20 MEQ POWDER FOR ORAL SOLN PO (09:32)
[2018-02-04 10:00] LABS: OSMOLALITY 303 mOsm/kg (280-295)
[2018-02-04] MEDS: DEXTROSE 5% 1,000 ML IV (14:00)
[2018-02-04] MEDS: VANCOMYCIN 1 GM 250 ML IVPB (20:23)
[2018-02-04] MEDS: HEPARIN 5,000 UNIT/0.5 ML VIAL SC (20:27)
[2018-02-05] MEDS: PIPER-TAZO 2.25 GM (PMX) 50 ML IVPB ×4 (00:31→18:09)
[2018-02-05] MEDS: INSULIN ASPART [NOVOLOG] 3 ML PEN SC ×6 (00:31→20:12)
[2018-02-05] MEDS: ALBUTEROL HFA 8 GM INHALER INH ×2 (01:35→05:35)
[2018-02-05] MEDS: IPRATROPIUM (HFA) 12.9 GM INHALER INH ×2 (01:35→05:35)
[2018-02-05] MEDS: PROPOFOL 100 ML IV ×2 (03:00→15:00)
[2018-02-05] MEDS: PANTOPRAZOLE 40 MG INJ IV (05:17)
[2018-02-05] MEDS: LEVOTHYROXINE 100 MCG VIAL IV (05:17)
[2018-02-05 05:28] LABS: ADD MAN DIFF? NO
[2018-02-05 05:35] LABS: WHITE BLOOD COUNT 10.1 10^3/ul (4.8-10.8)
[2018-02-05 05:35] LABS: BASOPHIL # 0.1 10^3/ul (0.0-0.1); BASOPHILS % 0.5 % (0.0-2.0); EOSINOPHILS # 0.1 10^3/ul (0.0-0.5); EOSINOPHILS % 0.8 % (0.0-7.0); HEMATOCRIT 31.1 % (37.0-47.0); HEMOGLOBIN 9.5 g/dl (12.0-16.0); LYMPHOCYTES # 1.9 10^3/ul (0.8-2.9); LYMPHOCYTES % 19.1 % (15.0-51.0); MEAN CORPUSCULAR HEMOGLOBIN 29.2 pg (29.0-33.0); MEAN CORPUSCULAR HGB CONC 30.5 g/dl (32.0-37.0); MEAN CORPUSCULAR VOLUME 95.7 fl (82.0-101.0); MEAN PLATELET VOLUME 11.2 fl (7.4-10.4); MONOCYTE # 0.8 10^3/ul (0.3-0.9); MONOCYTES % 7.8 % (0.0-11.0); NEUTROPHIL # 7.2 10^3/ul (1.6-7.5); NEUTROPHILS % 71.4 % (39.0-77.0); PLATELET COUNT 245 10^3/UL (140-415); RED BLOOD COUNT 3.25 10^6/ul (4.20-5.40); RED CELL DISTRIBUTION WIDTH 13.5 % (11.5-14.5)
[2018-02-05 05:52] LABS: ALANINE AMINOTRANSFERASE 37 IU/L (13-69); ALBUMIN 2.8 g/dl (3.3-4.9); ALBUMIN/GLOBULIN RATIO 1.12; ALKALINE PHOSPHATASE 76 IU/L (42-121); ASPARTATE AMINO TRANSFERASE 12 IU/L (15-46); BILIRUBIN,INDIRECT 0.1 mg/dl (0-1.1); BILIRUBIN,TOTAL 0.1 mg/dl (0.2-1.3); BLOOD UREA NITROGEN 37 mg/dl (7-20); CALCIUM 8.7 mg/dl (8.4-10.2); CHLORIDE 96 mmol/L (97-110); CREATININE 1.44 mg/dl (0.44-1.00); GLUCOSE 124 mg/dl (70-220); MAGNESIUM 2.3 mg/dl (1.7-2.5); POTASSIUM 3.7 mmol/L (3.5-5.1); SODIUM 144 mmol/L (135-144); TOTAL PROTEIN 5.3 g/dl (6.1-8.1)
[2018-02-05 06:00] LABS: ANION GAP 8 (8-16)
[2018-02-05 06:01] LABS: CARBON DIOXIDE 44 mmol/L (21-31)
[2018-02-05 08:32] LABS: AADO2 Arterial 62.2 mmHg (7.0-24.0); Allen Test ACCEPTAB; Arterial Base Excess 13.8 mmol/L (-3.0-3); Arterial Blood Gas Oxygen Sat 94.5 mmHG (95.0-100.0); Arterial COHb 0.8 % (0.0-3.0); Arterial Fraction of Oxyhgb 93.6 % (93.0-99.0); Arterial HCO3 41.4 mmol/L (22.0-26.0); Arterial MetHb 0.1 % (0.0-1.5); Arterial Total Hemglobin 14.2 g/dl (12.0-18.0); Arterial pCO2 65.5 mmhg (35-45); MODE VENT - AC; Site Right Radial
[2018-02-05] MEDS: DILTIAZEM 90 MG TAB NGT (09:05)
[2018-02-05] MEDS: NYSTATIN 30 GM POWDER BTL TOP ×2 (09:05→20:14)
[2018-02-05] MEDS: HEPARIN 5,000 UNIT/0.5 ML VIAL SC ×2 (09:16→20:15)
[2018-02-05] MEDS: ACETAZOLAMIDE 250 MG TAB NGT ×2 (09:21→20:13)
[2018-02-05 09:52] LABS: AADO2 Arterial 63.6 mmHg (7.0-24.0); Allen Test ACCEPTAB; Arterial Base Excess 13.7 mmol/L (-3.0-3); Arterial Blood Gas Oxygen Sat 89.7 mmHG (95.0-100.0); Arterial COHb 0.3 % (0.0-3.0); Arterial Fraction of Oxyhgb 89.2 % (93.0-99.0); Arterial MetHb 0.3 % (0.0-1.5); Arterial Total Hemglobin 11.6 g/dl (12.0-18.0); Blood Gas PS 10; MODE VENT - CPAP; Site Left Radial
[2018-02-05] MEDS: SOD CHLORIDE 0.45% 1,000 ML IV (09:55)
[2018-02-05] MEDS: IPRATROPIUM (NEB) 0.5 MG/2.5 ML AMP HHN ×2 (14:00→20:22)
[2018-02-05] MEDS: ALBUTEROL 0.083% (NEB) 2.5 MG/3 ML AMP HHN ×2 (14:00→20:22)
[2018-02-05] MEDS: VANCOMYCIN 1 GM 250 ML IVPB (20:13)
[2018-02-06] MEDS: INSULIN ASPART [NOVOLOG] 3 ML PEN SC ×6 (00:34→20:55)
[2018-02-06] MEDS: PIPER-TAZO 2.25 GM (PMX) 50 ML IVPB ×4 (00:34→17:24)
[2018-02-06] MEDS: ALBUTEROL 0.083% (NEB) 2.5 MG/3 ML AMP HHN ×4 (01:30→19:46)
[2018-02-06] MEDS: IPRATROPIUM (NEB) 0.5 MG/2.5 ML AMP HHN ×4 (01:30→19:46)
[2018-02-06] MEDS: PROPOFOL 100 ML IV ×2 (03:00→14:17)
[2018-02-06 05:15] LABS: ADD MAN DIFF? NO
[2018-02-06 05:16] LABS: ABNORMAL IP MESSAGE 1; BASOPHIL # 0.1 10^3/ul (0.0-0.1); BASOPHILS % 0.5 % (0.0-2.0); EOSINOPHILS # 0.3 10^3/ul (0.0-0.5); HEMATOCRIT 36.3 % (37.0-47.0); HEMOGLOBIN 10.2 g/dl (12.0-16.0); LYMPHOCYTES # 1.8 10^3/ul (0.8-2.9); LYMPHOCYTES % 17.8 % (15.0-51.0); MEAN CORPUSCULAR HGB CONC 28.1 g/dl (32.0-37.0); MEAN CORPUSCULAR VOLUME 103.1 fl (82.0-101.0); MEAN PLATELET VOLUME 11.1 fl (7.4-10.4); MONOCYTE # 0.9 10^3/ul (0.3-0.9); MONOCYTES % 9.1 % (0.0-11.0); NEUTROPHILS % 69.1 % (39.0-77.0); PLATELET COUNT 235 10^3/UL (140-415); RED BLOOD COUNT 3.52 10^6/ul (4.20-5.40); RED CELL DISTRIBUTION WIDTH 13.2 % (11.5-14.5)
[2018-02-06 05:16] LABS: WHITE BLOOD COUNT 10.2 10^3/ul (4.8-10.8)
[2018-02-06] MEDS: PANTOPRAZOLE 40 MG INJ IV (05:21)
[2018-02-06] MEDS: LEVOTHYROXINE 100 MCG VIAL IV (05:22)
[2018-02-06 05:30] LABS: POSITIVE DIFF @See below
[2018-02-06 05:37] LABS: ALANINE AMINOTRANSFERASE 31 IU/L (13-69); ALBUMIN 3.4 g/dl (3.3-4.9); ALBUMIN/GLOBULIN RATIO 1.17; ALKALINE PHOSPHATASE 79 IU/L (42-121); ANION GAP 11 (8-16); ASPARTATE AMINO TRANSFERASE 12 IU/L (15-46); BILIRUBIN,INDIRECT 0.1 mg/dl (0-1.1); BILIRUBIN,TOTAL 0.1 mg/dl (0.2-1.3); BLOOD UREA NITROGEN 27 mg/dl (7-20); CALCIUM 8.6 mg/dl (8.4-10.2); CARBON DIOXIDE 37 mmol/L (21-31); CHLORIDE 100 mmol/L (97-110); CREATININE 1.59 mg/dl (0.44-1.00); GLUCOSE 102 mg/dl (70-220); MAGNESIUM 2.2 mg/dl (1.7-2.5); POTASSIUM 3.9 mmol/L (3.5-5.1); SODIUM 144 mmol/L (135-144); TOTAL PROTEIN 6.3 g/dl (6.1-8.1)
[2018-02-06] MEDS: DILTIAZEM (CD) 180 MG CAP PO (08:31)
[2018-02-06] MEDS: ACETAZOLAMIDE 250 MG TAB NGT ×2 (08:31→20:56)
[2018-02-06] MEDS: NYSTATIN 30 GM POWDER BTL TOP ×2 (08:32→21:12)
[2018-02-06] MEDS: HEPARIN 5,000 UNIT/0.5 ML VIAL SC ×2 (08:40→21:09)
[2018-02-06 08:50] LABS: AADO2 Arterial 19.3 mmHg (7.0-24.0); Arterial Base Excess 6.5 mmol/L (-3.0-3); Arterial Blood Gas Oxygen Sat 97.4 mmHG (95.0-100.0); Arterial COHb 0.8 % (0.0-3.0); Arterial Fraction of Oxyhgb 96.3 % (93.0-99.0); Arterial HCO3 35.9 mmol/L (22.0-26.0); Arterial MetHb 0.3 % (0.0-1.5); Arterial Total Hemglobin 13.2 g/dl (12.0-18.0); Arterial pCO2 77.2 mmhg (35-45); MODE NASAL CANNULA; Site Right Brachial
[2018-02-06] MEDS: SOD CHLORIDE 0.45% 1,000 ML IV (09:30)
[2018-02-06] MEDS: VANCOMYCIN 1 GM 250 ML IVPB (19:41)
[2018-02-06] MEDS: SALMETEROL/FLUTICASONE 250/50 INHA INH (20:56)
[2018-02-07] MEDS: PIPER-TAZO 2.25 GM (PMX) 50 ML IVPB ×5 (00:23→23:08)
[2018-02-07] MEDS: IPRATROPIUM (NEB) 0.5 MG/2.5 ML AMP HHN ×3 (01:04→13:12)
[2018-02-07] MEDS: ALBUTEROL 0.083% (NEB) 2.5 MG/3 ML AMP HHN ×3 (01:05→13:12)
[2018-02-07] MEDS: ACCUCHECK AT 2AM (Patients on SS coverage) XX (02:00)
[2018-02-07 04:27] LABS: AADO2 Arterial 73.9 mmHg (7.0-24.0); Allen Test ACCEPTAB; Arterial Blood Gas Oxygen Sat 95.7 mmHG (95.0-100.0); Arterial COHb 0 % (0.0-3.0); Arterial Fraction of Oxyhgb 95.3 % (93.0-99.0); Arterial HCO3 25.2 mmol/L (22.0-26.0); Arterial MetHb 0.4 % (0.0-1.5); Arterial Total Hemglobin 8.8 g/dl (12.0-18.0); Arterial pCO2 49.4 mmhg (35-45); MODE MASK - BIPAP; Site Right Radial
[2018-02-07] MEDS: PANTOPRAZOLE 40 MG INJ IV (05:33)
[2018-02-07 06:15] LABS: ADD MAN DIFF? NO
[2018-02-07 06:17] LABS: WHITE BLOOD COUNT 10.3 10^3/ul (4.8-10.8)
[2018-02-07 06:17] LABS: ABNORMAL IP MESSAGE 1; BASOPHIL # 0.1 10^3/ul (0.0-0.1); BASOPHILS % 0.7 % (0.0-2.0); EOSINOPHILS # 0.4 10^3/ul (0.0-0.5); EOSINOPHILS % 3.4 % (0.0-7.0); HEMATOCRIT 34.7 % (37.0-47.0); HEMOGLOBIN 9.9 g/dl (12.0-16.0); LYMPHOCYTES # 1.6 10^3/ul (0.8-2.9); LYMPHOCYTES % 15.8 % (15.0-51.0); MEAN CORPUSCULAR HEMOGLOBIN 28.8 pg (29.0-33.0); MEAN CORPUSCULAR HGB CONC 28.5 g/dl (32.0-37.0); MEAN CORPUSCULAR VOLUME 100.9 fl (82.0-101.0); MEAN PLATELET VOLUME 11.2 fl (7.4-10.4); MONOCYTE # 0.8 10^3/ul (0.3-0.9); MONOCYTES % 7.6 % (0.0-11.0); NEUTROPHIL # 7.4 10^3/ul (1.6-7.5); NEUTROPHILS % 72.1 % (39.0-77.0); PLATELET COUNT 242 10^3/UL (140-415); RED BLOOD COUNT 3.44 10^6/ul (4.20-5.40); RED CELL DISTRIBUTION WIDTH 13.1 % (11.5-14.5)
[2018-02-07 06:20] LABS: POSITIVE DIFF @See below
[2018-02-07 06:42] LABS: INR 1.08; PROTIME 14.1 Sec (11.9-14.9); PT RATIO 1.1
[2018-02-07 06:48] LABS: ALANINE AMINOTRANSFERASE 32 IU/L (13-69); ALBUMIN 3.1 g/dl (3.3-4.9); ALBUMIN/GLOBULIN RATIO 1.19; ALKALINE PHOSPHATASE 77 IU/L (42-121); ANION GAP 11 (8-16); ASPARTATE AMINO TRANSFERASE 18 IU/L (15-46); BILIRUBIN,INDIRECT 0.2 mg/dl (0-1.1); BILIRUBIN,TOTAL 0.2 mg/dl (0.2-1.3); BLOOD UREA NITROGEN 24 mg/dl (7-20); CALCIUM 8.5 mg/dl (8.4-10.2); CARBON DIOXIDE 35 mmol/L (21-31); CHLORIDE 104 mmol/L (97-110); CREATININE 1.47 mg/dl (0.44-1.00); GLUCOSE 102 mg/dl (70-220); POTASSIUM 4.3 mmol/L (3.5-5.1); SODIUM 146 mmol/L (135-144); TOTAL PROTEIN 5.7 g/dl (6.1-8.1)
[2018-02-07 06:51] LABS: FREE T4 (FREE THYROXINE) 1.38 ng/dl (0.78-2.44)
[2018-02-07 07:29] LABS: TRIIODOTHYRONINE 0.55 ng/ml (0.97-1.69)
[2018-02-07] MEDS: INSULIN ASPART [NOVOLOG] 3 ML PEN SC ×4 (08:00→21:00)
[2018-02-07] MEDS: NYSTATIN 30 GM POWDER BTL TOP ×2 (09:00→21:22)
[2018-02-07] MEDS: ACETAZOLAMIDE 250 MG TAB NGT ×2 (10:14→21:22)
[2018-02-07] MEDS: LEVOTHYROXINE 112 MCG TAB PO (10:14)
[2018-02-07] MEDS: DILTIAZEM (CD) 180 MG CAP PO (10:15)
[2018-02-07] MEDS: HEPARIN 5,000 UNIT/0.5 ML VIAL SC ×2 (10:20→21:24)
[2018-02-07] MEDS: SOD CHLORIDE 0.45% 1,000 ML IV (10:23)
[2018-02-07] MEDS: SALMETEROL/FLUTICASONE 250/50 INHA INH ×2 (13:49→21:21)
[2018-02-07] MEDS: VANCOMYCIN 1 GM 250 ML IVPB (23:33)
[2018-02-08] MEDS: DIGOXIN 500 MCG INJ IV ×2 (01:36→07:46)
[2018-02-08] MEDS: ACCUCHECK AT 2AM (Patients on SS coverage) XX (01:37)
[2018-02-08] MEDS: LEVOTHYROXINE 112 MCG TAB PO ×2 (05:02→21:47)
[2018-02-08] MEDS: DILTIAZEM 50 MG INJ IV (07:33)
[2018-02-08] MEDS: DILTIAZEM (CD) 180 MG CAP PO (07:34)
[2018-02-08] MEDS: IPRATROPIUM (NEB) 0.5 MG/2.5 ML AMP HHN ×3 (08:00→16:06)
[2018-02-08] MEDS: ALBUTEROL 0.083% (NEB) 2.5 MG/3 ML AMP HHN (08:00)
[2018-02-08] MEDS: INSULIN ASPART [NOVOLOG] 3 ML PEN SC ×4 (08:00→21:00)
[2018-02-08] MEDS: SALMETEROL/FLUTICASONE 250/50 INHA INH (09:00)
[2018-02-08] MEDS: FAMOTIDINE 20 MG TAB PO (09:00)
[2018-02-08] MEDS: ACETAZOLAMIDE 250 MG TAB NGT ×2 (09:00→21:00)
[2018-02-08] MEDS: HEPARIN 5,000 UNIT/0.5 ML VIAL SC ×2 (09:00→22:45)
[2018-02-08] MEDS: NYSTATIN 30 GM POWDER BTL TOP ×2 (09:25→22:39)
[2018-02-08] MEDS: AMIODARONE 200 MG TAB PO ×2 (12:30→21:00)
[2018-02-08 12:43] LABS: AADO2 Arterial 154.7 mmHg (7.0-24.0); Arterial Base Excess -1.5 mmol/L (-3.0-3); Arterial Blood Gas Oxygen Sat 97.5 mmHG (95.0-100.0); Arterial COHb 0.4 % (0.0-3.0); Arterial Fraction of Oxyhgb 96.7 % (93.0-99.0); Arterial HCO3 28.9 mmol/L (22.0-26.0); Arterial MetHb 0.4 % (0.0-1.5); Arterial Total Hemglobin 11.9 g/dl (12.0-18.0); Arterial pCO2 82.1 mmhg (35-45); Blood Gas IEPAP 15/5; MODE MASK - BIPAP; Site Right Brachial
[2018-02-08] MEDS: BUDESONIDE (NEB) 0.5MG/2ML AMP HHN ×2 (14:00→19:38)
[2018-02-08] MEDS: LORAZEPAM 2 MG INJ IV (14:19)
[2018-02-08] MEDS: SOD CHLORIDE 0.45% 1,000 ML IV (15:37)
[2018-02-08 15:46] LABS: AADO2 Arterial 69.9 mmHg (7.0-24.0); Arterial Base Excess 0.1 mmol/L (-3.0-3); Arterial Blood Gas Oxygen Sat 93.6 mmHG (95.0-100.0); Arterial COHb 0.5 % (0.0-3.0); Arterial Fraction of Oxyhgb 92.8 % (93.0-99.0); Arterial HCO3 28.2 mmol/L (22.0-26.0); Arterial MetHb 0.4 % (0.0-1.5); Arterial Total Hemglobin 11.7 g/dl (12.0-18.0); Arterial pCO2 63.3 mmhg (35-45); Blood Gas PS 15/5; MODE MASK - BIPAP; Site Right Brachial
[2018-02-08] MEDS: LEVALBUTEROL (NEB) 1.25 MG/0.5 ML AMP HHN (16:06)
[2018-02-08 16:15] LABS: ADD MAN DIFF? NO
[2018-02-08 16:16] LABS: ABNORMAL IP MESSAGE 1; BASOPHIL # 0.1 10^3/ul (0.0-0.1); BASOPHILS % 0.8 % (0.0-2.0); EOSINOPHILS % 0.3 % (0.0-7.0); HEMATOCRIT 37.4 % (37.0-47.0); HEMOGLOBIN 10.6 g/dl (12.0-16.0); LYMPHOCYTES # 1.4 10^3/ul (0.8-2.9); LYMPHOCYTES % 11.7 % (15.0-51.0); MEAN CORPUSCULAR HEMOGLOBIN 28.9 pg (29.0-33.0); MEAN CORPUSCULAR HGB CONC 28.3 g/dl (32.0-37.0); MEAN CORPUSCULAR VOLUME 101.9 fl (82.0-101.0); MEAN PLATELET VOLUME 10.8 fl (7.4-10.4); MONOCYTE # 1.1 10^3/ul (0.3-0.9); MONOCYTES % 8.9 % (0.0-11.0); NEUTROPHIL # 9.2 10^3/ul (1.6-7.5); NEUTROPHILS % 77.7 % (39.0-77.0); PLATELET COUNT 266 10^3/UL (140-415); RED BLOOD COUNT 3.67 10^6/ul (4.20-5.40)
[2018-02-08 16:16] LABS: WHITE BLOOD COUNT 11.9 10^3/ul (4.8-10.8)
[2018-02-08 16:21] LABS: POSITIVE DIFF @See below
[2018-02-08] MEDS: PIPER-TAZO 3.375 GM IV (PMX) 100 ML IVPB ×2 (16:40→18:14)
[2018-02-08 16:42] LABS: ALANINE AMINOTRANSFERASE 33 IU/L (13-69); ALBUMIN 3.6 g/dl (3.3-4.9); ALBUMIN/GLOBULIN RATIO 1.16; ALKALINE PHOSPHATASE 93 IU/L (42-121); ANION GAP 13 (8-16); ASPARTATE AMINO TRANSFERASE 21 IU/L (15-46); BILIRUBIN,INDIRECT 0.2 mg/dl (0-1.1); BILIRUBIN,TOTAL 0.2 mg/dl (0.2-1.3); BLOOD UREA NITROGEN 23 mg/dl (7-20); CALCIUM 8.8 mg/dl (8.4-10.2); CARBON DIOXIDE 28 mmol/L (21-31); CHLORIDE 107 mmol/L (97-110); CREATININE 1.41 mg/dl (0.44-1.00); GLUCOSE 79 mg/dl (70-220); MAGNESIUM 2.2 mg/dl (1.7-2.5); PHOSPHORUS 3.8 mg/dl (2.5-4.9); POTASSIUM 4.3 mmol/L (3.5-5.1); SODIUM 144 mmol/L (135-144); TOTAL PROTEIN 6.7 g/dl (6.1-8.1)
[2018-02-08] MEDS: METHYLPREDNISOLONE 125 MG INJ IV ×2 (16:45→18:15)
[2018-02-08] MEDS: FUROSEMIDE 40 MG INJ IV (16:46)
[2018-02-08] MEDS: VANCOMYCIN 1 GM 250 ML IVPB (22:39)
[2018-02-08 22:58] LABS: VANCOMYCIN,TROUGH 17.2 ug/ml (10.0-20.0)
[2018-02-09] MEDS: PIPER-TAZO 3.375 GM IV (PMX) 100 ML IVPB ×3 (00:32→12:04)
[2018-02-09] MEDS: METHYLPREDNISOLONE 125 MG INJ IV ×3 (00:32→12:02)
[2018-02-09] MEDS: ACCUCHECK AT 2AM (Patients on SS coverage) XX (02:00)
[2018-02-09 06:12] LABS: BLOOD UREA NITROGEN 26 mg/dl (7-20)
[2018-02-09 06:12] LABS: CREATININE 1.42 mg/dl (0.44-1.00)
[2018-02-09] MEDS: PANTOPRAZOLE 40 MG INJ IV (06:29)
[2018-02-09] MEDS: IPRATROPIUM (NEB) 0.5 MG/2.5 ML AMP HHN ×3 (07:48→16:24)
[2018-02-09] MEDS: LEVALBUTEROL (NEB) 1.25 MG/0.5 ML AMP HHN ×3 (07:49→16:24)
[2018-02-09] MEDS: INSULIN ASPART [NOVOLOG] 3 ML PEN SC ×4 (07:53→20:56)
[2018-02-09] MEDS: BUDESONIDE (NEB) 0.5MG/2ML AMP HHN ×2 (08:01→20:00)
[2018-02-09] MEDS: FAMOTIDINE 20 MG TAB PO (08:15)
[2018-02-09] MEDS: AMIODARONE 200 MG TAB PO ×2 (08:15→20:58)
[2018-02-09] MEDS: DILTIAZEM (CD) 180 MG CAP PO (08:15)
[2018-02-09] MEDS: NYSTATIN 30 GM POWDER BTL TOP ×2 (08:15→20:58)
[2018-02-09] MEDS: ACETAZOLAMIDE 250 MG TAB NGT (08:15)
[2018-02-09] MEDS: HEPARIN 5,000 UNIT/0.5 ML VIAL SC ×2 (08:21→20:55)
[2018-02-09] MEDS: SOD CHLORIDE 0.45% 1,000 ML IV (09:06)
[2018-02-09 11:48] LABS: ADD MAN DIFF? NO
[2018-02-09 11:58] LABS: ABNORMAL IP MESSAGE 1; BASOPHILS % 0.1 % (0.0-2.0); HEMATOCRIT 35.7 % (37.0-47.0); HEMOGLOBIN 10.4 g/dl (12.0-16.0); LYMPHOCYTES # 0.6 10^3/ul (0.8-2.9); LYMPHOCYTES % 5.6 % (15.0-51.0); MEAN CORPUSCULAR HEMOGLOBIN 28.6 pg (29.0-33.0); MEAN CORPUSCULAR HGB CONC 29.1 g/dl (32.0-37.0); MEAN CORPUSCULAR VOLUME 98.1 fl (82.0-101.0); MEAN PLATELET VOLUME 11.1 fl (7.4-10.4); MONOCYTE # 0.2 10^3/ul (0.3-0.9); MONOCYTES % 2.1 % (0.0-11.0); NEUTROPHIL # 9.3 10^3/ul (1.6-7.5); NEUTROPHILS % 91.9 % (39.0-77.0); PLATELET COUNT 319 10^3/UL (140-415); RED BLOOD COUNT 3.64 10^6/ul (4.20-5.40); RED CELL DISTRIBUTION WIDTH 12.8 % (11.5-14.5)
[2018-02-09 11:58] LABS: WHITE BLOOD COUNT 10.1 10^3/ul (4.8-10.8)
[2018-02-09 12:12] LABS: ALANINE AMINOTRANSFERASE 38 IU/L (13-69); ALBUMIN 3.5 g/dl (3.3-4.9); ALBUMIN/GLOBULIN RATIO 1.12; ALKALINE PHOSPHATASE 93 IU/L (42-121); ANION GAP 11 (8-16); ASPARTATE AMINO TRANSFERASE 19 IU/L (15-46); BILIRUBIN,INDIRECT 0.1 mg/dl (0-1.1); BILIRUBIN,TOTAL 0.1 mg/dl (0.2-1.3); BLOOD UREA NITROGEN 29 mg/dl (7-20); CALCIUM 8.9 mg/dl (8.4-10.2); CARBON DIOXIDE 31 mmol/L (21-31); CHLORIDE 106 mmol/L (97-110); CREATININE 1.53 mg/dl (0.44-1.00); GLUCOSE 164 mg/dl (70-220); POTASSIUM 3.4 mmol/L (3.5-5.1); SODIUM 145 mmol/L (135-144); TOTAL PROTEIN 6.6 g/dl (6.1-8.1)
[2018-02-09 12:16] LABS: POSITIVE DIFF @See below
[2018-02-09] MEDS: POTASSIUM CHLORIDE (SR) 20 MEQ TAB PO (12:41)
[2018-02-09] MEDS: METHYLPREDNISOLONE 40 MG INJ IV (20:54)
[2018-02-10] MEDS: IPRATROPIUM (NEB) 0.5 MG/2.5 ML AMP HHN ×4 (00:48→23:48)
[2018-02-10] MEDS: LEVALBUTEROL (NEB) 1.25 MG/0.5 ML AMP HHN ×4 (00:48→23:48)
[2018-02-10] MEDS: ACCUCHECK AT 2AM (Patients on SS coverage) XX (02:35)
[2018-02-10] MEDS: PANTOPRAZOLE 40 MG INJ IV (05:45)
[2018-02-10] MEDS: LEVOTHYROXINE 112 MCG TAB PO (05:45)
[2018-02-10] MEDS: VANCOMYCIN 750 MG in DEXTROSE 5% 150 ML IVPB (05:46)
[2018-02-10] MEDS: BUDESONIDE (NEB) 0.5MG/2ML AMP HHN ×2 (08:05→20:56)
[2018-02-10] MEDS: INSULIN ASPART [NOVOLOG] 3 ML PEN SC ×4 (08:30→21:00)
[2018-02-10 08:34] LABS: ADD MAN DIFF? NO
[2018-02-10] MEDS: HEPARIN 5,000 UNIT/0.5 ML VIAL SC ×2 (08:34→21:18)
[2018-02-10] MEDS: METHYLPREDNISOLONE 40 MG INJ IV ×2 (08:35→21:16)
[2018-02-10] MEDS: FAMOTIDINE 20 MG TAB PO (08:36)
[2018-02-10 08:37] LABS: BASOPHILS % 0.1 % (0.0-2.0); HEMATOCRIT 33.5 % (37.0-47.0); HEMOGLOBIN 9.9 g/dl (12.0-16.0); LYMPHOCYTES # 1.2 10^3/ul (0.8-2.9); LYMPHOCYTES % 7.6 % (15.0-51.0); MEAN CORPUSCULAR HEMOGLOBIN 28.9 pg (29.0-33.0); MEAN CORPUSCULAR HGB CONC 29.6 g/dl (32.0-37.0); MEAN PLATELET VOLUME 11.1 fl (7.4-10.4); MONOCYTE # 0.8 10^3/ul (0.3-0.9); MONOCYTES % 5.1 % (0.0-11.0); NEUTROPHIL # 13.1 10^3/ul (1.6-7.5); NEUTROPHILS % 86.6 % (39.0-77.0); PLATELET COUNT 331 10^3/UL (140-415); RED BLOOD COUNT 3.42 10^6/ul (4.20-5.40)
[2018-02-10 08:37] LABS: WHITE BLOOD COUNT 15.1 10^3/ul (4.8-10.8)
[2018-02-10] MEDS: AMIODARONE 200 MG TAB PO ×2 (08:41→21:17)
[2018-02-10] MEDS: FUROSEMIDE 20 MG TAB PO (08:42)
[2018-02-10] MEDS: DILTIAZEM (CD) 180 MG CAP PO (08:42)
[2018-02-10 08:59] LABS: ANION GAP 11 (8-16); BLOOD UREA NITROGEN 36 mg/dl (7-20); CALCIUM 8.9 mg/dl (8.4-10.2); CARBON DIOXIDE 30 mmol/L (21-31); CHLORIDE 109 mmol/L (97-110); CREATININE 1.48 mg/dl (0.44-1.00); GLUCOSE 185 mg/dl (70-220); MAGNESIUM 2.1 mg/dl (1.7-2.5); PHOSPHORUS 3.4 mg/dl (2.5-4.9); POTASSIUM 3.4 mmol/L (3.5-5.1); SODIUM 147 mmol/L (135-144)
[2018-02-10 09:41] LABS: Allen Test ACCEPTAB; Arterial Base Excess 0.6 mmol/L (-3.0-3); Arterial Blood Gas Oxygen Sat 92.1 mmHG (95.0-100.0); Arterial COHb 0.3 % (0.0-3.0); Arterial Fraction of Oxyhgb 91.5 % (93.0-99.0); Arterial HCO3 27.4 mmol/L (22.0-26.0); Arterial MetHb 0.3 % (0.0-1.5); Arterial pCO2 55.7 mmhg (35-45); MODE NASAL CANNULA; Site Left Radial
[2018-02-10] MEDS: NYSTATIN 30 GM POWDER BTL TOP ×2 (11:46→21:23)
[2018-02-10] MEDS: POTASSIUM CHLORIDE (SR) 20 MEQ TAB PO (17:42)
[2018-02-10] MEDS: LORAZEPAM 2 MG INJ IV ×2 (19:30→21:49)
[2018-02-10] MEDS: ACETAMINOPHEN 650MG/20.3ML CUP NGT (21:56)
[2018-02-11] MEDS: ACCUCHECK AT 2AM (Patients on SS coverage) XX (02:00)
[2018-02-11] MEDS: PANTOPRAZOLE 40 MG INJ IV (05:31)
[2018-02-11] MEDS: LEVOTHYROXINE 112 MCG TAB PO (06:49)
[2018-02-11 08:18] LABS: ADD MAN DIFF? NO
[2018-02-11 08:24] LABS: BASOPHILS % 0.1 % (0.0-2.0); HEMOGLOBIN 10.3 g/dl (12.0-16.0); LYMPHOCYTES # 0.7 10^3/ul (0.8-2.9); LYMPHOCYTES % 6.2 % (15.0-51.0); MEAN CORPUSCULAR HEMOGLOBIN 28.6 pg (29.0-33.0); MEAN CORPUSCULAR HGB CONC 29.4 g/dl (32.0-37.0); MEAN CORPUSCULAR VOLUME 97.2 fl (82.0-101.0); MEAN PLATELET VOLUME 11.1 fl (7.4-10.4); MONOCYTE # 0.5 10^3/ul (0.3-0.9); MONOCYTES % 4.2 % (0.0-11.0); NEUTROPHIL # 10.3 10^3/ul (1.6-7.5); PLATELET COUNT 352 10^3/UL (140-415); RED CELL DISTRIBUTION WIDTH 13.2 % (11.5-14.5)
[2018-02-11 08:24] LABS: WHITE BLOOD COUNT 11.5 10^3/ul (4.8-10.8)
[2018-02-11] MEDS: IPRATROPIUM (NEB) 0.5 MG/2.5 ML AMP HHN ×3 (08:28→23:24)
[2018-02-11] MEDS: LEVALBUTEROL (NEB) 1.25 MG/0.5 ML AMP HHN ×3 (08:29→23:25)
[2018-02-11] MEDS: BUDESONIDE (NEB) 0.5MG/2ML AMP HHN ×2 (08:46→20:03)
[2018-02-11] MEDS: FAMOTIDINE 20 MG TAB PO (08:52)
[2018-02-11] MEDS: FUROSEMIDE 20 MG TAB PO (08:53)
[2018-02-11] MEDS: AMIODARONE 200 MG TAB PO ×2 (08:54→21:29)
[2018-02-11] MEDS: DILTIAZEM (CD) 180 MG CAP PO (08:54)
[2018-02-11] MEDS: METHYLPREDNISOLONE 40 MG INJ IV (08:54)
[2018-02-11 08:57] LABS: ANION GAP 15 (8-16); BLOOD UREA NITROGEN 42 mg/dl (7-20); CALCIUM 8.7 mg/dl (8.4-10.2); CARBON DIOXIDE 28 mmol/L (21-31); CHLORIDE 110 mmol/L (97-110); GLUCOSE 189 mg/dl (70-220); PHOSPHORUS 3.2 mg/dl (2.5-4.9); POTASSIUM 3.5 mmol/L (3.5-5.1); SODIUM 149 mmol/L (135-144)
[2018-02-11] MEDS: HEPARIN 5,000 UNIT/0.5 ML VIAL SC ×2 (08:58→21:29)
[2018-02-11] MEDS: INSULIN ASPART [NOVOLOG] 3 ML PEN SC ×4 (09:00→21:46)
[2018-02-11] MEDS: NYSTATIN 30 GM POWDER BTL TOP ×2 (09:00→21:47)
[2018-02-11] MEDS ORDERED: LIDOCAINE 1% (MPF) 30 ML INJ INJ (20:00)
[2018-02-12] MEDS: ACCUCHECK AT 2AM (Patients on SS coverage) XX (02:13)
[2018-02-12] MEDS: LEVOTHYROXINE 112 MCG TAB PO (06:27)
[2018-02-12] MEDS: PANTOPRAZOLE (EC) 40 MG TAB PO (06:27)
[2018-02-12] MEDS: IPRATROPIUM (NEB) 0.5 MG/2.5 ML AMP HHN ×2 (08:21→16:21)
[2018-02-12] MEDS: LEVALBUTEROL (NEB) 1.25 MG/0.5 ML AMP HHN ×2 (08:21→16:21)
[2018-02-12] MEDS: BUDESONIDE (NEB) 0.5MG/2ML AMP HHN ×2 (09:33→20:29)
[2018-02-12] MEDS: predniSONE 20 MG TAB PO (09:41)
[2018-02-12] MEDS: FAMOTIDINE 20 MG TAB PO (09:41)
[2018-02-12] MEDS: DILTIAZEM (CD) 180 MG CAP PO (09:42)
[2018-02-12] MEDS: AMIODARONE 200 MG TAB PO ×2 (09:42→20:27)
[2018-02-12] MEDS: NYSTATIN 30 GM POWDER BTL TOP ×2 (09:44→20:42)
[2018-02-12] MEDS: HEPARIN 5,000 UNIT/0.5 ML VIAL SC (09:44)
[2018-02-12] MEDS: INSULIN ASPART [NOVOLOG] 3 ML PEN SC ×4 (12:00→20:40)
[2018-02-13] MEDS: IPRATROPIUM (NEB) 0.5 MG/2.5 ML AMP HHN ×2 (00:53→09:29)
[2018-02-13] MEDS: LEVALBUTEROL (NEB) 1.25 MG/0.5 ML AMP HHN ×2 (00:53→09:29)
[2018-02-13] MEDS: ACCUCHECK AT 2AM (Patients on SS coverage) XX (02:00)
[2018-02-13] MEDS: LEVOTHYROXINE 112 MCG TAB PO (06:34)
[2018-02-13] MEDS: PANTOPRAZOLE (EC) 40 MG TAB PO (06:34)
[2018-02-13 07:42] LABS: ADD MAN DIFF? NO
[2018-02-13 07:47] LABS: BASOPHILS % 0.1 % (0.0-2.0); EOSINOPHILS % 0.1 % (0.0-7.0); HEMATOCRIT 34.1 % (37.0-47.0); HEMOGLOBIN 10.2 g/dl (12.0-16.0); LYMPHOCYTES % 18.6 % (15.0-51.0); MEAN CORPUSCULAR HEMOGLOBIN 28.6 pg (29.0-33.0); MEAN CORPUSCULAR HGB CONC 29.9 g/dl (32.0-37.0); MEAN CORPUSCULAR VOLUME 95.5 fl (82.0-101.0); MEAN PLATELET VOLUME 10.7 fl (7.4-10.4); MONOCYTE # 0.9 10^3/ul (0.3-0.9); MONOCYTES % 8.5 % (0.0-11.0); NEUTROPHIL # 7.6 10^3/ul (1.6-7.5); NEUTROPHILS % 71.6 % (39.0-77.0); PLATELET COUNT 352 10^3/UL (140-415); RED BLOOD COUNT 3.57 10^6/ul (4.20-5.40); RED CELL DISTRIBUTION WIDTH 13.2 % (11.5-14.5)
[2018-02-13 07:47] LABS: WHITE BLOOD COUNT 10.6 10^3/ul (4.8-10.8)
[2018-02-13] MEDS: INSULIN ASPART [NOVOLOG] 3 ML PEN SC ×2 (08:00→12:00)
[2018-02-13 08:37] LABS: ANION GAP 12 (8-16); BLOOD UREA NITROGEN 41 mg/dl (7-20); CALCIUM 8.6 mg/dl (8.4-10.2); CARBON DIOXIDE 30 mmol/L (21-31); CHLORIDE 108 mmol/L (97-110); CREATININE 1.38 mg/dl (0.44-1.00); GLUCOSE 117 mg/dl (70-220); PHOSPHORUS 2.5 mg/dl (2.5-4.9); POTASSIUM 3.5 mmol/L (3.5-5.1); SODIUM 146 mmol/L (135-144)
[2018-02-13] MEDS: DILTIAZEM (CD) 180 MG CAP PO (08:57)
[2018-02-13] MEDS: FAMOTIDINE 20 MG TAB PO (08:57)
[2018-02-13] MEDS: AMIODARONE 200 MG TAB PO (08:57)
[2018-02-13] MEDS: APIXABAN 5 MG TABLET PO (08:57)
[2018-02-13] MEDS: predniSONE 10 MG TAB PO (08:58)
[2018-02-13] MEDS: NYSTATIN 30 GM POWDER BTL TOP (08:58)
[2018-02-13] MEDS: BUDESONIDE (NEB) 0.5MG/2ML AMP HHN (09:29)
[2018-02-13] MEDS: SALMETEROL/FLUTICASONE 250/50 INHA INH (12:22)
[2018-02-13] MEDS: TIOTROPIUM 18 MCG CAPSULE INHA DEV INH (12:22)
== END 2018-02-13 12:59 | disposition home or self-care (01) | DRG 871 ==
LOC: ICU 19:42 → MS4 02-08 11:27 → E/R 17:51 → ICU 02-08 13:45 → MS4 02-06 23:14
PROC: 0BH17EZ Insertion of Endotracheal Airway into Trachea, Via Natural or Artificial Opening (ICD-10-PCS; principal; 2018-02-02)
PROC: 5A1945Z Respiratory Ventilation, 24-96 Consecutive Hours (ICD-10-PCS; 2018-02-02)
DX: A41.9 Sepsis, unspecified organism (principal); I50.33 Acute on chronic diastolic (congestive) heart failure; I46.9 Cardiac arrest, cause unspecified; R65.21 Severe sepsis with septic shock; G92 Toxic encephalopathy; J96.21 Acute and chronic respiratory failure with hypoxia; J96.22 Acute and chronic respiratory failure with hypercapnia; I13.0 Hypertensive heart and chronic kidney disease with heart failure and stage 1 through stage 4 chronic kidney disease, or unspecified chronic kidney disease; N17.9 Acute kidney failure, unspecified; J44.1 Chronic obstructive pulmonary disease with (acute) exacerbation; I16.1 Hypertensive emergency; N39.0 Urinary tract infection, site not specified; E87.0 Hyperosmolality and hypernatremia; E87.4 Mixed disorder of acid-base balance; E11.22 Type 2 diabetes mellitus with diabetic chronic kidney disease; N18.2 Chronic kidney disease, stage 2 (mild); Z90.710 Acquired absence of both cervix and uterus; Z68.34 Body mass index [BMI] 34.0-34.9, adult; E03.9 Hypothyroidism, unspecified; B37.2 Candidiasis of skin and nail; I48.0 Paroxysmal atrial fibrillation; I35.0 Nonrheumatic aortic (valve) stenosis; E66.01 Morbid (severe) obesity due to excess calories
CPT/HCPCS: 31500; 36415; 36600; 70450; 71045; 74018; 80048; 80053; 80202; 81001; 81003; 82565; 82570; 82803; 82962; 83036; 83605; 83690; 83735; 83880; 83930; 83935; 84100; 84300; 84439; 84443; 84480; 84481; 84484; 84520; 85025; 85610; 85730; 87040; 87070; 87081; 87086; 89220; 92610; 93005; 93306; 94002; 94003; 94640; 94660; 94664; 94770; 96365; 96375; 97161; 99291-25